=== PATIENT | male | born 1960 | race Caucasian/White ===

== ENCOUNTER 2018-10-27 10:39 | Inpatient (IN) | payer OTHER ==
[2018-10-27 11:40] LABS: Absolute Lymphocytes (CBC) 1.2 K/uL (0.7-4.9); Absolute Monocytes 1.3 K/uL (0.1-1.3); Absolute Neutrophil 5.4 K/uL (1.8-8.0); Basophils % 0.4 % (0-1.3); Eosinophils % 0.3 % (0-4.4); Hematocrit 46.4 % (39.6-49.0); Lymphocytes % 15.4 % (15.3-44.8); MPV 9.3 fL (7.6-11.3); Monocytes % 15.9 % (3.3-12.3); RBC Red Blood Cell Count 5.03 M/uL (4.33-5.43)
[2018-10-27 12:18] LABS: Albumin 4.1 g/dL (3.4-5.0); Bilirubin Direct 0.2 mg/dL (0-0.2); Bilirubin Total 0.8 mg/dL (0.2-1.0); Potassium 3.7 mmol/L (3.5-5.1); Protein, Total 8.1 g/dL (6.4-8.2)
[2018-10-27 12:37] LABS: Blood Morphology Comment NOTED (NOT SEEN); Platelet Estimate ADEQ
[2018-10-27 12:38] LABS: Stomatocytes 1+
[2018-10-27] MEDS ORDERED: ONDANSETRON 4 MG/2 ML VIAL ONE ×2 (12:44→13:22)
--- NOTE | 2018-10-27 12:47 | RAD REPORT ---
EXAM DESCRIPTION: CT - Abdomen Pelvis Wo Contrast - 10/27/2018 12:30 pm CLINICAL HISTORY: Abdominal pain, vomiting COMPARISON: CT March 2016 TECHNIQUE: Axial [address] imaging of the abdomen and pelvis was performed without IV contrast. No IV contrast was given because of allergy, abnormal renal function, patient refusal or physician re quest. No oral contrast administered. All CT scans are performed using dose optimization technique as appropriate and may include automated exposure control or mA/KV adjustment according to patient size. FINDINGS: No suspicious findings in the lung bases. The liver, spleen and pancreas show no suspicious findings on non-contrast imaging. Gallbladder and b iliary tree are also without suspicious finding. Gallstones can be occult on CT imaging. No hydronephrosis or suspicious renal mass. No significant adrenal finding. Isodense renal masses an d pyelonephritis cannot be excluded in the absence of IV contrast. Urinary bladder is contracted. No gross abnormality seen. Stomach is distended with retained fluid and a small amount of food. No gastric wall thickening or ma ss. No gastric outlet obstruction. Duodenum is normal in diameter. It ligament of Treitz there is dil ation of the small bowel but can't see is into the mid ileum level. There is an abrupt transition in the right mid abdomen (image 57/[id number]. There is no mass or wall thickening. Internal hernia or adhesion would be most likely. Beyond the transition point small bowel is decompressed. Colon is decompressed. There is mild left-sided diverticulosis without diverticulitis. No free air, pneumatosis or free fluid. No focal inflammatory stranding. No mass or bulky lymphadeno nicola. Fat filled right inguinal hernia is present. There is postsurgical change in the right mid abd omen abdominal wall. No acute bone finding. Degenerative changes are present. 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 IMPRESSION: Small bowel obstruction pattern with transition point proximal to mid ileum. This is rig ht mid abdomen umbilical level. No mass or focal abnormality at the transition point. This is likely adhesion or possibly internal hernia. No free air or pneumatosis. No surgically emergent finding. Full assessment is limited is the absence of IV contrast.
--- NOTE | 2018-10-27 13:11 | EDPHYS ---
Physician Documentation [facility] Name: Raffi Rodriguez Age: 58 yrs Sex: Male : 1960 Arrival Date: 10/27/2018 Time: 10:40 Bed 8 Private MD: Kj Ortega ED Physician Raffi Julien HPI: 10/27 11:07 This 58 yrs old Male presents to ER via Ambulatory with complaints of jmm Abdominal Pain, Nausea/Vomiting. 11:07 The patient presents with abdominal pain that is diffuse. Onset: The symptoms/episode jmm began/occurred gradually, 6 day(s) ago. The symptoms do not radiate. Associated signs and symptoms: Pertinent positives: vomiting. This is a 58 year old male with a history of sbo that presents to the ED with complaints of generalized abdominal pain beginning this past Tuesday, which has worsened. Patient complaints of multiple episodes of vomiting. Denies recent bowel movement. . Historical: - Allergies: 10:45 Codeine; hj - Home Meds: 10:45 None [Active]; hj - PMHx: 10:45 small bowel obstruction; hj - PSHx: 10:45 left ankle; Appendectomy; hj - Immunization history:: Adult Immunizations up to date. - Social history:: Smoking status: Patient uses tobacco products, Patient uses alcohol, occasionally. - Ebola Screening: : Patient negative for fever greater than or equal to 101.5 degrees Fahrenheit, and additional compatible Ebola Virus Disease symptoms Patient denies exposure to infectious person Patient denies travel to an Ebola-affected area in the 21 days before illness onset. ROS: 11:07 Cardiovascular: Negative for chest pain, palpitations, and edema, Respiratory: Negative jmm for shortness of breath, cough, wheezing, and pleuritic chest pain. 11:07 Constitutional: Positive for body aches, chills. 11:07 Abdomen/GI: Positive for abdominal pain, nausea, vomiting. 11:07 All other systems are negative. Exam: 11:07 Head/Face: atraumatic. Eyes: EOMI, no conjunctival erythema appreciated ENT: Moist jmm Mucus Membranes Neck: Trachea midline, Supple Chest/axilla: Normal chest wall appearance and motion. Cardiovascular: Regular rate and rhythm. No edema appreciated Respiratory: Normal respirations, no respiratory distress appreciated 11:07 Constitutional: The patient appears in no acute distress, alert, awake. 11:07 Abdomen/GI: Inspection: abdomen appears normal, Bowel sounds: normal, Palpation: abdomen is soft and non-tender, in all quadrants. 11:07 Back: ROM is normal. 11:07 Musculoskeletal/extremity: ROM: intact in all extremities. 11:07 Skin: Appearance: Color: normal in color. 11:07 Neuro: Orientation: is normal, Mentation: is normal, Memory: is normal. 11:07 Psych: Behavior/mood is pleasant, cooperative. Vital Signs: 10:46 BP 100 / 69; Pulse 106; Resp 18; Temp 98.4(O); Pulse Ox 96% on R/A; Weight 90.72 kg; hj Height 5 ft. 11 in. (180.34 cm); Pain 7/10; 11:46 BP 127 / 77; Pulse 93; Resp 20; Pulse Ox 94% on R/A; aj1 12:30 BP 128 / 82; Pulse 95; Resp 18; Pulse Ox 94% on 2 lpm NC; aj1 13:30 BP 131 / 74; Pulse 89; Resp 18; Pulse Ox 95% on 2 lpm NC; aj1 14:30 BP 131 / 82; Pulse 87; Resp 18; Pulse Ox 94% on 2 lpm NC; aj1 15:30 BP 145 / 72; Pulse 87; Resp 18; Pulse Ox 94% on 2 lpm NC; aj1 10:46 Body Mass Index 27.89 (90.72 kg, 180.34 cm) MDM: 11:07 Patient medically screened. [facility] 13:08 Data reviewed: vital signs, nurses notes. Counseling: I had a detailed discussion with [facility] the patient and/or guardian regarding: the historical points, exam findings, and any diagnostic results supporting the discharge/admit diagnosis, radiology results. ED course: I discussed the patient with Dr. Mooney whom accepted the patient. I discussed the patient with Dr. Canela whom will consult with the patient. . 10/27 11:08 Order name: Basic Metabolic Panel; Complete Time: 12:39 [facility] 10/27 11:08 Order name: CBC with Diff; Complete Time: 12:39 [facility] 10/27 11:08 Order name: Creatinine for Radiology; Complete Time: 12:17 [facility] 10/27 11:08 Order name: Hepatic Function; Complete Time: 12:39 [facility] 10/27 11:08 Order name: Lipase; Complete Time: 12:39 [facility] 10/27 12:18 Order name: CT Abd/Pelvis - Without Cont; Complete Time: 12:50 [facility] 10/27 12:37 Order name: Manual Differential; Complete Time: 12:39 [facility] 10/27 11:08 Order name: IV Saline Lock; Complete Time: 11:42 [facility] 10/27 11:08 Order name: Labs collected and sent; Complete Time: 11:43 [facility] Administered Medications: 12:50 Drug: Zofran 4 mg Route: IVP; Site: right antecubital; aj1 13:30 Follow up: Response: No adverse reaction aj1 13:23 Drug: NS 0.9% 1000 ml Route: IV; Rate: 1 bolus; Site: right antecubital; aj1 15:49 Follow up: IV Status: Completed infusion; IV Intake: 1000ml aj1 13:23 Drug: morphine 4 mg Route: IVP; Site: right antecubital; aj1 14:30 Follow up: Response: No adverse reaction aj1 15:13 Drug: Mefoxin 1 grams Route: IVPB; Infused Over: 30 mins; Site: right antecubital; aj1 15:50 Follow up: IV Status: Completed infusion; IV Intake: 10ml ; given SIVP per protocol aj1 15:14 Drug: morphine 4 mg Route: IVP; Site: right antecubital; aj1 15:50 Follow up: Response: No adverse reaction aj1 Disposition: 17:04 Co-signature as Attending Physician, Raffi Juilen MD I agree with the assessment and kdr plan of care. Disposition: 10/27/18 13:10 Hospitalization ordered by Abi Mooney for Observation. Preliminary diagnosis is Bowel Obstruction. - Bed requested for Telemetry/MedSurg (Inpatient). - Status is Observation. aj1 - Condition is Stable. - Problem is new. - Symptoms have improved. UTI on Admission? No Signatures: Dispatcher [employer] EDLisa Ruelas RN RN aj1 Raffi Julien MD MD kdr Mickail, Joel, PA PA m Dio Bland RN RN Layla Rojo RN RN df Corrections: (The following items were deleted from the chart) 12:22 11:09 Abdomen Pelvis W Con+CT.RAD.BRZ ordered. [facility] EDMS 12:37 11:49 CBC Smear Scan ordered. [facility] EDMS 14:42 13:10 Hospitalization Ordered by Abi Mooney MD for Observation. Preliminary diagnosis df is Bowel Obstruction. Bed requested for Telemetry/MedSurg (Inpatient). Status is Observation. Condition is Stable. Problem is new. Symptoms have improved. UTI on Admission? No. jmm 15:56 14:42 10/27/2018 13:10 Hospitalization Ordered by Abi Mooney MD for Observation. aj1 Preliminary diagnosis is Bowel Obstruction. Bed requested for Telemetry/MedSurg (Inpatient). Status is Observation. Condition is Stable. Problem is new. Symptoms have improved. UTI on Admission? No. df
--- NOTE | 2018-10-27 13:11 | ER ---
Nurse's Notes [facility] Name: Raffi Rodriguez Age: 58 yrs Sex: Male : 1960 Arrival Date: 10/27/2018 Time: 10:40 Bed 8 Private MD: Kj Ortega Diagnosis: Bowel Obstruction Presentation: 10/27 10:42 Presenting complaint: Patient states: i have been having stomach pain for 3 days now hj and not having a bowel movement for 2 days; reports N/V; denies fever and chills; hx of SBO;. Transition of care: patient was not received from another setting of care. Onset of symptoms was October 27, 2018. Risk Assessment: Do you want to hurt yourself or someone else? Patient reports no desire to harm self or others. Initial Sepsis Screen: Does the patient meet any 2 criteria? No. Patient's initial sepsis screen is negative. Does the patient have a suspected source of infection? No. Patient's initial sepsis screen is negative. Care prior to arrival: None. 10:42 Method Of Arrival: Ambulatory 10:42 Acuity: NICK 3 hj Triage Assessment: 10:45 General: Appears in no apparent distress. uncomfortable, Behavior is calm, cooperative, hj appropriate for age. Pain: Complains of pain in abdomen Pain currently is 7 out of 10 on a pain scale. GI: Reports lower abdominal pain, constipation, nausea, vomiting. Historical: - Allergies: 10:45 Codeine; hj - Home Meds: 10:45 None [Active]; hj - PMHx: 10:45 small bowel obstruction; hj - PSHx: 10:45 left ankle; Appendectomy; hj - Immunization history:: Adult Immunizations up to date. - Social history:: Smoking status: Patient uses tobacco products, Patient uses alcohol, occasionally. - Ebola Screening: : Patient negative for fever greater than or equal to 101.5 degrees Fahrenheit, and additional compatible Ebola Virus Disease symptoms Patient denies exposure to infectious person Patient denies travel to an Ebola-affected area in the 21 days before illness onset. Screenin:45 Abuse screen: Denies threats or abuse. Denies injuries from another. Nutritional hj screening: No deficits noted. Tuberculosis screening: No symptoms or risk factors identified. Fall Risk None identified. Assessment: 10:46 GI: Bowel sounds Abd is soft Reports bloating. hj 11:30 General: Appears in no apparent distress. uncomfortable, Behavior is calm, cooperative, aj1 appropriate for age. Pain: Complains of pain in right lower quadrant Pain does not radiate. Pain currently is 5 out of 10 on a pain scale. at worst was 8 out of 10 on a pain scale. Is intermittent. Neuro: Level of Consciousness is awake, alert, obeys commands, Oriented to person, place, time, situation. Cardiovascular: Patient's skin is warm and dry. Respiratory: Airway is patent Respiratory effort is even, unlabored, Respiratory pattern is regular, symmetrical. GI: Abdomen is round Bowel sounds present X 4 quads. Abd is soft X 4 quads Reports bloating, constipation, nausea, vomiting. : No signs and/or symptoms were reported regarding the genitourinary system. EENT: No signs and/or symptoms were reported regarding the EENT system. Derm: No signs and/or symptoms reported regarding the dermatologic system. Skin is pink, warm \T\ dry. normal. Musculoskeletal: No signs and/or symptoms reported regarding the musculoskeletal system. Circulation, motion, and sensation intact. 12:30 Reassessment: Patient appears in no apparent distress at this time. No changes from aj1 previously documented assessment. Patient and/or family updated on plan of care and expected duration. Pain level reassessed. Patient is alert, oriented x 3, equal unlabored respirations, skin warm/dry/pink. 13:30 Reassessment: Patient appears in no apparent distress at this time. No changes from aj1 previously documented assessment. Patient and/or family updated on plan of care and expected duration. Pain level reassessed. Patient is alert, oriented x 3, equal unlabored respirations, skin warm/dry/pink. 14:30 Reassessment: Patient appears in no apparent distress at this time. No changes from aj1 previously documented assessment. Patient and/or family updated on plan of care and expected duration. Pain level reassessed. Patient is alert, oriented x 3, equal unlabored respirations, skin warm/dry/pink. 15:30 Reassessment: Patient appears in no apparent distress at this time. No changes from aj1 previously documented assessment. Patient and/or family updated on plan of care and expected duration. Pain level reassessed. Patient is alert, oriented x 3, equal unlabored respirations, skin warm/dry/pink. Vital Signs: 10:46 BP 100 / 69; Pulse 106; Resp 18; Temp 98.4(O); Pulse Ox 96% on R/A; Weight 90.72 kg; hj Height 5 ft. 11 in. (180.34 cm); Pain 7/10; 11:46 BP 127 / 77; Pulse 93; Resp 20; Pulse Ox 94% on R/A; aj1 12:30 BP 128 / 82; Pulse 95; Resp 18; Pulse Ox 94% on 2 lpm NC; aj1 13:30 BP 131 / 74; Pulse 89; Resp 18; Pulse Ox 95% on 2 lpm NC; aj1 14:30 BP 131 / 82; Pulse 87; Resp 18; Pulse Ox 94% on 2 lpm NC; aj1 15:30 BP 145 / 72; Pulse 87; Resp 18; Pulse Ox 94% on 2 lpm NC; aj1 10:46 Body Mass Index 27.89 (90.72 kg, 180.34 cm) hj ED Course: 10:40 Patient arrived in ED. ag5 10:41 Kj Ortega MD is Private Physician. ag5 10:44 Triage completed. hj 10:46 Arm band placed on right wrist. hj 10:46 Patient has correct armband on for positive identification. Placed in gown. Bed in low hj position. Call light in reach. Side rails up X 1. 10:50 Roe Elizabeth PA is PHCP. m 10:50 Raffi Julien MD is Attending Physician. jmm 10:55 Lisa England RN is Primary Nurse. aj1 11:30 No provider procedures requiring assistance completed. Initial lab(s) drawn, by ny, aj1 sent to lab. Inserted saline lock: 20 gauge in right antecubital area, using aseptic technique. Blood collected. 12:30 CT Abd/Pelvis - Without Cont In Process Unspecified. EDMS 13:09 Abi Mooney MD is Hospitalizing Provider. m 15:48 Report given to ZAIN Davis on 4th floor. aj1 15:48 Patient admitted, IV remains in place. aj1 Administered Medications: 12:50 Drug: Zofran 4 mg Route: IVP; Site: right antecubital; aj1 13:30 Follow up: Response: No adverse reaction aj1 13:23 Drug: NS 0.9% 1000 ml Route: IV; Rate: 1 bolus; Site: right antecubital; aj1 15:49 Follow up: IV Status: Completed infusion; IV Intake: 1000ml aj1 13:23 Drug: morphine 4 mg Route: IVP; Site: right antecubital; aj1 14:30 Follow up: Response: No adverse reaction aj1 15:13 Drug: Mefoxin 1 grams Route: IVPB; Infused Over: 30 mins; Site: right antecubital; aj1 15:50 Follow up: IV Status: Completed infusion; IV Intake: 10ml ; given SIVP per protocol aj1 15:14 Drug: morphine 4 mg Route: IVP; Site: right antecubital; aj1 15:50 Follow up: Response: No adverse reaction aj Intake: 15:49 IV: 1000ml; Total: 1000ml. aj1 15:50 IV: 10ml; Total: 1010ml. aj1 Outcome: 13:10 Decision to Hospitalize by Provider. [facility] 15:48 Admitted to Tele accompanied by tech, via wheelchair, with oxygen, with chart. aj1 15:48 Condition: stable 15:48 Discharge instructions given to patient, Instructed on the need for admit, Demonstrated understanding of instructions. 15:56 Patient left the ED. aj1 Signatures: Dispatcher [employer] EDLisa Ruelas, RN RN aj1 Roe Elizabeth PA PA jmm Jones, Susan sj Joaquin, Henry, RN RN hj Gaskin, Ajare ag5 Corrections: (The following items were deleted from the chart) 10:48 10:46 Pulse 106bpm; Resp 18bpm; Pulse Ox 96% RA; Temp 98.4F Oral; 90.72 kg; Height 5 hj ft. 11 in.; BMI: 27.8; Pain 7/10; hj 11:25 11:24 CT completed. Patient tolerated procedure well [facility] 11:24 Patient moved back from [facility]. [facility]
[2018-10-27] MEDS ORDERED: MORPHINE 4 MG/ML SYR ONE ×2 (13:21→15:22)
[2018-10-27] MEDS ORDERED: NA CHLORIDE 0.9% 1,000 ML ONE (13:30)
[2018-10-27] MEDS ORDERED: CEFOXITIN/SWI 1gm 1 GM/10 ML SYR ONE (15:16)
[2018-10-27] MEDS ORDERED: ACETAMINOPHEN 650MG/RECT SUPP PR PRN (16:26)
[2018-10-27] MEDS: NA CHLORIDE 0.9% 1,000 ML IV SCH ×2 (17:04→22:47)
[2018-10-27] MEDS: ONDANSETRON 4 MG/2 ML VIAL IV PRN ×2 (17:04→20:58)
[2018-10-27] MEDS: MORPHINE 2 MG/ML SYR IV PRN ×2 (19:16→23:19)
--- NOTE | 2018-10-27 20:36 | CON ---
Date of Consultation: 10/27/2018 Diagnosis: Small bowel obstruction. History Of Present Illness: This is the case of a 58-year-old patient, who comes to the ER complaini ng of abdominal bloating, nausea, and vomiting. He say he has history of bowel obstructions before. He has open appendectomy emergent for ruptured appendix, it has been more than a decade ago. He has not been experiencing some symptoms of bowel obstruction until about 3 days ago, he was just not doi ng well. He just went to the primary doctor, also they gave him some antinausea, some constipation m edication, some laxative, and still not improving, so he just came to the ER. He denies any dysuria, hematuria, hematochezia, or melena. Denies any recent traveling out of the country. Denies any fam calos member sick at home. The patient was advised the importance of colonoscopies. Past Medical History: Includes bowel obstructions. Past Surgical History: Open appendectomy for ruptured appendix in 1990. Allergies: CODEINE. Family History: Noncontributory. Review of Systems: Ten points otherwise unremarkable. Physical Examination: General: The patient is awake and alert. HEENT: Pupils are equal and reactive, anicteric. Neck: Supple. Chest: Clear. Abdomen: Softly distended. Mild tenderness, generalized. No rebound. Rectal: Deferred. Extremities: Good capillary refill. Neuro: Cranial nerves 2 through 12 grossly within normal limits. Laboratory Data: WBC count of 3.8, hemoglobin of 15.8, and platelets of 223. Chloride 97, creatinin e is 2.63, glucose 131. The CAT scan of abdomen and pelvis interpreted Dr. Hernandez as a small bowel obstruction at transition point, probably due to adhesions located right over the previous incision. Assessment: This is a 58-year-old patient with small bowel obstruction. He has been probed more rhonda n 2 days, tried to keep n.p.o., laxative, and he has not improved, so I explained to him that his bow el obstruction shows it is at the transition point and forcefully this time I might have to go and do a laparotomy and relieve that obstruction to diminish chance of compromise the rest of intestines. He is right now coming with renal insufficiency. I am going to let the primary doctor in the next fe w hours to determine if it is for renal or not, if it is then keep him hydrated since he has been hav ing a bowel rest for several days and hydration is being compromised too. From the surgery standpoin t, I explained to him the chance for exploratory laparotomy, possible bowel resection, possible ostom y with benefits, alternatives, and risks including, but not limited to infection, bleeding, damage to adjacent structures as complication, recurrence, AK, and even . He also understands this may n ot relieve his symptoms. He might need more than one surgical intervention. NGUYEN/SARMAD Voice ID: [id number] Report ID: [id number]
[2018-10-27] MEDS ORDERED: MELATONIN 3 MG TABLET PO PRN (22:17)
[2018-10-27] MEDS ORDERED: PANTOPRAZOLE 40 MG INJ IVP ONE (22:17)
[2018-10-27] MEDS ORDERED: SODIUM CHLORIDE 0.9% 10ML INJ IV PRN (22:17)
[2018-10-28] MEDS: ONDANSETRON 4 MG/2 ML VIAL IV PRN ×2 (02:37→06:54)
--- NOTE | 2018-10-28 03:25 | HP ---
Date of Admission: 10/27/2018 Chief Complaint: Abdominal pain. Primary Care Physician: Dr. Ortega. Consultants: Dr. Canela with General Surgery. History Of Present Illness: The patient is a 58-year-old male with no significant past medical histo ry, who was in his usual state of health until 3 days prior to admission when the patient had sudden onset of abdominal pain, nausea, vomiting, unable to tolerate any p.o. intake. The patient has had e pisodes similar to this 2 years ago when the patient had a small-bowel obstruction likely due to adhe sions. The patient has had appendectomy previously. The patient came into the ER. His symptoms wer e constant, moderate, progressively worsening. His vital signs were stable. He was slightly tachyca rdic and hypertensive. His workup revealed elevated creatinine level at 2.63. The patient was sever gisele dehydrated. His CT scan of the abdomen and pelvis showed bowel obstruction pattern with transiti on point proximal to the mid ileum. This is right mid abdomen, umbilical level. No mass. No focal abnormality. No surgically emergent finding. The patient was then referred for admission. When see n in the ER, he was awake, alert, oriented x3, in some mild distress. Past Medical History: None. Surgical History: The patient has had left ankle surgery due to trauma and right hand surgery due to trauma as well, appendectomy. Allergies: TO CODEINE WHICH CAUSES HIVES. Medications: List reviewed. The patient takes [id number] Aleve as needed. Family History: Sister has renal cancer. Brother has heart disease. Social History: The patient smokes a third of a pack per day, has been smoking for very long time, c ounseled for 3 minutes to stop smoking. The patient seems receptive. Alcohol 2 drinks a month. No illicit drug use. Review of Systems: An 11-point system reviewed, negative except as per HPI. Physical Examination: Vital Signs: Temperature 98.4, heart rate 106, blood pressure 100/69, respirations 18, O2 96% on 2 L via nasal cannula. General: Awake, alert, oriented x3, ill-appearing male. HEENT: Normocephalic, atraumatic. PERRLA. EOMI. Dry mucous membranes. Oropharynx is clear. Conj unctivae are anicteric. Neck: Supple. No JVD. Trachea midline. CV: S1, S2. Regular rate and rhythm. Peripheral pulses present. Respiratory: Moving air well bilaterally. No wheezing or stridor. No use of accessory muscles. Gastrointestinal: Abdomen is distended. Tenderness to palpation. Bowel sounds hypoactive. No guar ding or rigidity. Extremities: No clubbing, cyanosis, or edema. No calf tenderness. Neuro: Cranial nerves 2-12 intact grossly. No focal neurological deficit. Speech is normal. Stren gth is symmetric in bilateral upper and lower extremities. Sensation intact to light touch. Skin: No rashes. Normal skin turgor. Psych: Mood is okay. Affect is full. Insight and judgment are good. Laboratory Data: Sodium 138, potassium 3.7, chloride 97, CO2 29, BUN 59, creatinine 2.63, glucose 13 1, calcium 8.8. Lipase 81. WBC 8, H and H 15.8 and 46.4, platelets 223, neutrophils 68. CT scan sh ows a small-bowel obstruction pattern with transition point proximal to mid ileum. This is right mid abdomen, umbilical level. No mass or focal abnormality seen at the transition point, likely adhesio n or possible internal hernia. No free air or pneumatosis. No surgically emergent finding. Assessment And Plan: A 58-year-old male with: 1.Small-bowel obstruction secondary to adhesions most likely. The patient is scheduled for surgery by Dr. Canela in the a.m. We will keep n.p.o. NG tube if the patient has further nausea and vomit ing. Pain medications and IV fluids. 2.Acute kidney injury. Creatinine is elevated, likely prerenal secondary to prerenal azotemia. We will continue with IV fluid hydration and monitor creatinine. Avoid NSAIDs. 3.Hyperglycemia, likely reactive. No history of diabetes. 4.GI and DVT prophylaxis, PPI and SCDs. No chemical anticoagulation due to impending surgery. We will continue with IV fluid hydration, pain medications, and antiemetics. We will place NG tube i f condition worsens. Anticipate surgery in the a.m. Admit the patient to Med-Surg, place as observa tion. /MODHerbert Voice ID: [id number]
[2018-10-28] MEDS: MORPHINE 2 MG/ML SYR IV PRN ×4 (03:26→17:04)
[2018-10-28 04:40] LABS: Absolute Lymphocytes (CBC) 1.1 K/uL (0.7-4.9); Absolute Neutrophil 2.4 K/uL (1.8-8.0); Basophils % 0.6 % (0-1.3); Eosinophils % 0.8 % (0-4.4); Hematocrit 38.4 % (39.6-49.0); Lymphocytes % 23.4 % (15.3-44.8); MPV 9.4 fL (7.6-11.3); RBC Red Blood Cell Count 4.13 M/uL (4.33-5.43)
[2018-10-28 04:52] LABS: Monocytes % 21.9 % (3.3-12.3)
[2018-10-28 05:07] LABS: Albumin 3.2 g/dL (3.4-5.0); Bilirubin Total 0.8 mg/dL (0.2-1.0); Magnesium 2.5 mg/dL (1.8-2.4); Potassium 4.2 mmol/L (3.5-5.1); Protein, Total 6.3 g/dL (6.4-8.2)
[2018-10-28] MEDS: NA CHLORIDE 0.9% 1,000 ML IV SCH ×3 (08:26→23:29)
[2018-10-28] MEDS ORDERED: Ringers Lactate 1,000 ML IV ONE ×3 (09:34→11:36)
[2018-10-28] MEDS ORDERED: CEFOXITIN/SWI 1gm 1 GM/10 ML SYR ONE (10:09)
[2018-10-28] MEDS ORDERED: SUCCINYLCHOLINE 20 MG/ML (10 ML) IV ONE ×2 (10:12)
[2018-10-28] MEDS ORDERED: FENTANYL CITR 250 MCG/5 ML ONE (10:15)
[2018-10-28] MEDS ORDERED: PROPOFOL 200 MG/20 ML VIAL IV ONE (10:15)
[2018-10-28] MEDS ORDERED: MIDAZOLAM HCL 2 MG/2 ML INJ ONE (10:15)
[2018-10-28] MEDS ORDERED: ROCURONIUM 50 MG/5 ML VIAL IV ONE ×2 (10:15→11:17)
[2018-10-28] MEDS ORDERED: DEXAMETHASONE 10 MG/ML VIAL ONE (11:00)
[2018-10-28] MEDS ORDERED: Phenylephrine HCl 10 MG/ML 1 ML VIAL ONE (11:03)
[2018-10-28] MEDS ORDERED: GLYCOPYRROLATE 0.2 MG/ML SYR ONE (12:49)
[2018-10-28] MEDS ORDERED: NEOSTIGMINE 1 MG/ML -10 ML VIAL ONE (12:49)
[2018-10-28] MEDS: FENTANYL CITR 100 MCG/2 ML ONE ×3 (13:20→13:40)
[2018-10-28] MEDS ORDERED: KETOROLAC 30 MG/ML INJ ONE (13:25)
--- NOTE | 2018-10-28 13:42 | P.BOP ---
Preoperative diagnosis: SBO Postoperative diagnosis: same Primary procedure: Exploratory laparotomy, small bowel resection Secondary procedure: EXTENSIVE intrabdominal lysis of adhesions. [place] Guide: Lucinda Chavis (Patricio) Estimated blood loss: <100cc Specimen: SB, intraintestinal content. Anesthesia: General Complications: None Transferred to: Recovery Room Condition: Good
[2018-10-28] MEDS ORDERED: MEPERIDINE HCL 50 MG/ML AMP ONE (14:00)
[2018-10-28] MEDS ORDERED: ONDANSETRON 4 MG/2 ML VIAL ONE (14:00)
[2018-10-28] MEDS: METRONIDAZOLE 500mg IVPB 500 MG/100 ML BAG IV SCH ×2 (17:04→23:29)
--- NOTE | 2018-10-28 17:38 | PN ---
Date of Progress Note: 10/28/2018 History: The patient is seen and examined. Chart reviewed and case discussed with RN and Dr. Jarett hendrix. The patient went for surgery today by Dr. Canela. He tolerated the procedure well. Did have some hypoxia. Postoperatively is on face mask. Medications: List reviewed. Physical Examination: Vital Signs: Temperature 99.2, heart rate 102, blood pressure 154/87, respirations 24, O2 95% on a V enturi mask, 24% FiO2. General: Awake, alert, oriented x3. Some mild distress, is having some pain around the incision sit e. CV: S1, S2. No murmurs. Sinus tachycardia. Respiratory: Diminished breath sounds. No wheezing or stridor. Gastrointestinal: Abdomen is mildly distended. Tenderness to palpation around the incision site. I ncision site is bandaged, clean, dry, and intact. Bowel sounds absent. Extremities: No clubbing, cyanosis, edema. Neurologic: Nonfocal. Laboratory Data: Sodium 143, potassium 4.2, chloride 108, CO2 30, BUN 48, creatinine 1.28, glucose 1 05, calcium 7.9, phosphorus 3, magnesium 2.5. WBC 4.6, H and H of 13 and 38.4, platelets 179, neutro phils 53%. Assessment And Plan: A 58-year-old male with: 1.Small bowel obstruction secondary to extensive adhesions, status post exploratory laparotomy with lysis of adhesions. We will continue with bowel rest. NG tube in place. Appreciate Dr. Canela's input. 2.Acute kidney injury. Creatinine has normalized. We will continue with IV fluids and monitor crea tinine. 3.Hyperglycemia, resolved, likely acute. No history of diabetes. No risk factors. 4.Gastrointestinal, deep vein thrombosis prophylaxis. PPI and SCDs. Resume anticoagulation 24 hour s post surgery. 5.Hypoxia. Acute respiratory failure with hypoxia, currently on Venturi mask, likely secondary to r esidual anesthesia. We will wean off as tolerated. Plan: Continue monitoring in the ICU setting. SA/MODL Voice ID: [id number] Report ID: [id number]
[2018-10-28] MEDS: MORPHINE 4 MG/ML SYR IV PRN ×3 (19:07→23:15)
[2018-10-28] MEDS: CIPROFLOXACIN 400mg IV 400 MG/200 ML BAG IV SCH (20:34)
[2018-10-28] MEDS: ACETAMINOPHEN 650MG/RECT SUPP PR PRN (21:04)
--- NOTE | 2018-10-28 22:33 | OP ---
Date of Procedure: 10/28/2018 Surgeon: Dio Canela MD Vice President: TITO Ocasio. Preoperative Diagnosis: Small bowel obstruction. Postoperative Diagnoses: Small bowel obstruction plus extensive intraabdominal adhesions and devital ized small bowel and stricture. Procedures: Emergent exploratory laparotomy with small bowel resection, anastomosis, and extensive i ntraabdominal lysis of adhesions. Estimated Blood Loss: Less than 100 cc. Specimen: Small bowel intra-intestinal content causing obstruction. Anesthesia: General. Indications: This is the case of a male, who comes to us with small bowel obstruction, not improving . Benefits, alternatives, and risks of laparotomy, possible bowel resection, possible colostomy were fully explained to the patient, which include but are not limited to infection, bleeding, damage to adjacent structures, anesthesia complication, anastomosis leak, abscess, KS, and even . He also understands this may not relieve his symptoms. He might need more than one surgical intervention. He understood, signed a consent. Description Of Procedure: The patient was brought to the operating room, placed in supine position. Anesthesia was achieved without complication. A time-out was called. A midline incision was made. Incision was gone through fascia and immediately we noticed the patient to have dense adhesions. La parotomy was done, which took significant amount of time. We spent at least more than an hour were j ust to do lysis of adhesions to be able to get access to the area. The patient has previous abdomina l surgery for ruptured appendix. We were able to release area of small bowel. We noticed the patien t had a stricture in the small bowel, that bowel does not look viable, so we proceeded to do the prox imal and distal control, transect the CHAGO 55, proximal and distal. We opened the proximal part and l arge amount of vegetable material was removed. Please see pictures. Some of them more than 50 cm lo ng and about 1 cm thick. They looked like entire asparagus. We had to remove that, since even to th e anastomosis we believe this may cause obstruction. Once we did that and then basically we once aga in controlled of the area, since we already ran the bowel and released that from all the adhesions an d found the area of narrowing, we proceeded then to make 2 enterotomies, proximal and distal, and con nected anastomosis using a CHAGO 55 and then closed the enterotomies with TA 55, checking anastomosis t o be patent and also viable. The mesenteric that previously was ligated with LigaSure was then appro ximated to diminish the chance of internal hernias. The bowel has good color with no cyanosis. Afte r that, we put the bowel in and made sure was not kinked, then we proceeded to do a profuse irrigatio n of the abdomen. The area of the lysis of adhesions also inspected to make sure there was no bleedi ng. NG tube looks in place. The liver with no masses palpated, and the rest of the large bowel look s viable with no extraluminal masses seen. At that moment, we once again inspected bowel, it was rosalino e and clean, we put it without a kink in the abdomen and then closed the fascia with #2 nylon in runn ing fashion, subcutaneous tissue closed with 3-0 chromic, and the skin with fara. Sponge count an d instrument counts were correct. The patient tolerated the procedure well. The patient was sent to Recovery in stable condition. NGUYEN/SARMAD Voice ID: [id number] Report ID: [id number]
[2018-10-29] MEDS: MORPHINE 4 MG/ML SYR IV PRN ×4 (01:35→22:12)
[2018-10-29] MEDS: METRONIDAZOLE 500mg IVPB 500 MG/100 ML BAG IV SCH ×3 (05:32→17:23)
[2018-10-29 05:37] LABS: Absolute Lymphocytes (CBC) 1.2 K/uL (0.7-4.9); Absolute Monocytes 1.2 K/uL (0.1-1.3); Absolute Neutrophil 4.3 K/uL (1.8-8.0); Basophils % 0.2 % (0-1.3); Eosinophils % 0.1 % (0-4.4); Hematocrit 38.3 % (39.6-49.0); MPV 9.1 fL (7.6-11.3); Monocytes % 17.4 % (3.3-12.3); RBC Red Blood Cell Count 4.03 M/uL (4.33-5.43)
[2018-10-29 05:51] VITALS: BMI 28.3
[2018-10-29 05:55] LABS: Albumin 3.1 g/dL (3.4-5.0); Bilirubin Total 0.7 mg/dL (0.2-1.0); Potassium 4.4 mmol/L (3.5-5.1); Protein, Total 6.8 g/dL (6.4-8.2)
[2018-10-29] MEDS: MORPHINE 2 MG/ML SYR IV PRN ×3 (08:17→16:02)
[2018-10-29] MEDS: CIPROFLOXACIN 400mg IV 400 MG/200 ML BAG IV SCH ×2 (08:18→20:09)
[2018-10-29] MEDS: NA CHLORIDE 0.9% 1,000 ML IV SCH ×3 (08:26→20:31)
[2018-10-29] MEDS: ONDANSETRON 4 MG/2 ML VIAL IV PRN (10:00)
[2018-10-29 10:35] LABS: BUN Blood Urea Nitrogen 21 mg/dL (7-18); Bicarbonate 29 mmol/L (21-32); Glucose Level 127 mg/dL (74-106); Potassium 4.4 mmol/L (3.5-5.1); Sodium Level 143 mmol/L (136-145)
--- NOTE | 2018-10-29 14:35 | PN ---
Date of Progress Note: 10/29/2018 Subjective: Patient was seen and examined, chart reviewed and case discussed with RN. The patient i s doing well overall. 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 Medications List: Reviewed. Physical Examination: Vital Signs: T-max was 101.3 last night around 8 p.m. Current temperature is 99.7. CV: S1, S2. Regular rate and rhythm. Peripheral pulses present. Respiratory: Diminished breath sounds at the bases. No wheezing. Gastrointestinal: Abdomen is mildly distended. Mild tenderness to palpation around the incision sit e. Bowel sounds absent. Incision site clean, dry, intact. Extremities: No clubbing, cyanosis, or edema. Neurologic: Nonfocal. Laboratory Data: Sodium 144, potassium 4.4, chloride 109, CO2 30, BUN 24, creatinine 0.97, glucose 1 22, calcium 8.1, albumin 3.1. WBC 6.7, H and H 12.7 and 38.3, platelets 168, neutrophils 64%. Assessment And Plan: 1.A 58-year-old male with small bowel obstruction secondary to extensive adhesions, status post expl oratory laparotomy with lysis of adhesions. The patient is ambulating well, still has NG tube in ernesto ce, had 150 mL out since yesterday. We will continue with bowel rest until the patient is passing fl atus. Encourage ambulation. 2.Fever, likely due to atelectasis. We will check chest x-ray. Continue incentive spirometer. The patient has not been very enthusiastic with using the incentive spirometer. Encourage ambulation. 3.Acute kidney injury. Creatinine improved and normalized. We will continue with IV fluids and mon itor creatinine level. We will avoid NSAIDs. Hypoxia, resolved. 4.Normocytic normochromic anemia. H and H are stable. No postoperative bleeding. Plan: We will check chest x-ray for pneumonia. The patient is currently on Cipro and Flagyl. May n eed to adjust antibiotics depending on results step down from ICU if okay with Dr. Canela. /SARMAD Voice ID: [id number] Report ID: [id number]
--- NOTE | 2018-10-29 15:31 | RAD REPORT ---
EXAM DESCRIPTION: RAD - Chest Single View - 10/29/2018 2:16 pm CLINICAL HISTORY: cough, fever Chest pain. COMPARISON: No comparisons FINDINGS: Portable technique limits examination quality. The lungs are grossly clear. The heart is normal in size. No displaced fractures.Enteric tube tip blake ears to be entering the stomach. IMPRESSION: No acute intrathoracic process suspected.
[2018-10-29] MEDS ORDERED: SODIUM CHLORIDE 0.9% 10ML INJ IV PRN (17:14)
[2018-10-29] MEDS: PANTOPRAZOLE 40 MG INJ IVP SCH (17:23)
[2018-10-29 19:23] LABS: Urine Appearance CLEAR; Urine Bilirubin NEGATIVE (NEG); Urine Blood TRACE (NEG); Urine Color YELLOW; Urine Glucose TRACE (NEG); Urine Protein NEGATIVE (NEG); Urine Specific Gravity 1.015 (1.005-1.030); Urine Urobilinogen 0.2 mg/dL (0.2-1.0); Urine pH 7.5 (5.0-7.0)
[2018-10-29 19:41] LABS: Urine Bacteria <20 /HPF (NONE SEEN)
[2018-10-29 19:42] LABS: Urine Culture Reflex Order NOT NEEDED
[2018-10-29] MEDS: ACETAMINOPHEN 650MG/RECT SUPP PR PRN (20:31)
--- NOTE | 2018-10-29 20:35 | PN ---
Status post laparotomy, extensive intraabdominal adhesions, small bowel resection and anastomosis. The patient is doing better. No shortness of breath. No chest pain. Ambulating. NG tube in place. Objective: General: The patient is awake and alert. HEENT: Pupils are equal and reactive, anicteric. Neck: Supple. Chest: Clear. Abdomen: Softly distended. Bowel sounds negative. Intact surgical site. Extremities: Good capillary refill. No calf tenderness. Laboratory Data: Blood work shows WBC count of 6.7 with hemoglobin of 12.7. Chloride is 110, creati nine is 0.8, BUN is 21. Plan: Continue NG tube. Out of bed. Incentive spirometry. Continue on IV antibiotics. Bowel rest . The patient may be transferred to the floor. Incentive spirometry. NGUYEN/SARMAD Voice ID: [id number] Report ID: [id number]
[2018-10-29 22:27] LABS: Absolute Lymphocytes (CBC) 1.2 K/uL (0.7-4.9); Absolute Neutrophil 5.5 K/uL (1.8-8.0); Basophils % 0.4 % (0-1.3); Eosinophils % 0.6 % (0-4.4); Hematocrit 36.9 % (39.6-49.0); Lymphocytes % 15.5 % (15.3-44.8); MPV 9.2 fL (7.6-11.3); Monocytes % 13.2 % (3.3-12.3); RBC Red Blood Cell Count 3.98 M/uL (4.33-5.43)
[2018-10-29 22:37] LABS: ALT/SGPT 24 U/L (12-78); AST/SGOT 26 U/L (15-37); Albumin 3.1 g/dL (3.4-5.0); Alkaline Phosphatase 60 U/L (45-117); BUN Blood Urea Nitrogen 16 mg/dL (7-18); Bicarbonate 28 mmol/L (21-32); Bilirubin Total 0.8 mg/dL (0.2-1.0); Glucose Level 127 mg/dL (74-106); Potassium 3.7 mmol/L (3.5-5.1); Protein, Total 6.7 g/dL (6.4-8.2); Sodium Level 139 mmol/L (136-145)
[2018-10-30] MEDS: NA CHLORIDE 0.9% 1,000 ML IV SCH ×2 (00:26→08:26)
[2018-10-30] MEDS: METRONIDAZOLE 500mg IVPB 500 MG/100 ML BAG IV SCH ×5 (00:49→23:45)
[2018-10-30 04:19] LABS: Absolute Lymphocytes (CBC) 1.5 K/uL (0.7-4.9); Absolute Monocytes 1.3 K/uL (0.1-1.3); Absolute Neutrophil 6.5 K/uL (1.8-8.0); Basophils % 0.3 % (0-1.3); Eosinophils % 1.2 % (0-4.4); Hematocrit 36.4 % (39.6-49.0); Lymphocytes % 15.7 % (15.3-44.8); Monocytes % 13.9 % (3.3-12.3); RBC Red Blood Cell Count 3.93 M/uL (4.33-5.43)
[2018-10-30] MEDS: PANTOPRAZOLE 40 MG INJ IVP SCH (08:18)
[2018-10-30] MEDS: CIPROFLOXACIN 400mg IV 400 MG/200 ML BAG IV SCH ×2 (08:18→21:10)
[2018-10-30] MEDS: D5.45NS W/KCL 20MEQ 20 MEQ/1,000 ML BAG IV SCH ×2 (12:49→23:44)
[2018-10-30] MEDS: IPRATROPIUM BROM 0.5MG/2.5ML NEB SCH ×2 (14:41→20:00)
[2018-10-30] MEDS: ALBUTEROL 2.5 MG/3 ML NEB SOL NEB SCH ×2 (14:41→20:00)
[2018-10-30] MEDS: ACETAMINOPHEN 500 MG TAB PO PRN (15:43)
--- NOTE | 2018-10-30 16:33 | PN ---
Date of Progress Note: 10/30/2018 Subjective: Patient was seen and examined. Chart reviewed and case discussed with RN and Dr. Canela. The patient said he had a rough night. He self weaned off morphine. The patient is ambulating. No acute distress. Still has not passed any flatus. Medications: List reviewed. Physical Examination: Vital Signs: Temperature 98.3, heart rate 94, blood pressure 158/75, respirations 18, O2 93% on 2 L via nasal cannula. General: Awake, alert, and oriented x3, not in any acute distress. CV: S1 and S2. Regular rate and rhythm. Peripheral pulses present. Respiratory: Moving air well bilaterally. No wheezing or stridor. Gastrointestinal: Abdomen is soft. Mild tenderness to palpation of the incision site. Incision site is clean, dry, and intact. Bowel sounds hyperactive. Extremities: No clubbing, cyanosis, or edema. Neurologic: Nonfocal. Laboratory Data: Sodium 139, potassium 3.7, chloride 105, CO2 28, BUN 16, creatinine 0.81, glucose 127, lactate 1.1, calcium 8.2. WBC 9.3, H and H 12.5 and 36.4, platelets 170, neutrophils 69%. Cultures pending. Pathology specimen is also pending. Chest x-ray from 10/29/2018, personally reviewed, shows no acute intrathoracic process suspected. Assessment And Plan: A 58-year-old male with; 1. Small bowel obstruction secondary to extensive adhesions, status post exploratory laparotomy and lysis of adhesions postoperative day #2. The patient still has not passed any flatus, has been ambulating. No longer on any IV narcotics. We will continue to monitor until bowel function returns and Dr. Canela is on board. 2. Acute kidney injury. Creatinine normalized. We will continue to monitor creatinine level. Likely prerenal azotemia, secondary to dehydration. 3. Fever. Chest x-ray was clear. UA was negative likely secondary to atelectasis postoperatively. The patient is doing well with incentive spirometry. No further fevers. We will continue to monitor. 4. Hypoxia. The patient currently on 2 L via nasal cannula. We will try to wean off as tolerated. The patient does smoke, likely has some underlying COPD. We will start on breathing treatments. SA/MODL Voice ID: [id number] Report ID: [id number] MTDD
--- NOTE | 2018-10-30 17:48 | PN ---
Date of Progress Note: 10/30/2018 Diagnosis: Small bowel obstruction, status post laparotomy and bowel resection. Subjective: The patient is doing well, ambulating. He believes he passed some flatus, not sure. Objective: General: Afebrile. Chest: Clear. Abdomen: Soft, softly distended. Bowel sounds diminished. Intact surgical site. Extremities: Good capillary refill. Laboratory Data: Blood work shows WBC count of 9.3, hemoglobin of 12.5, glucose 127. Assessment: A 58-year-old patient, status post bowel obstruction, status post bowel surgery, improvi ng doing better. We are going to remove the NG tube today. Sip of water. Ambulation incentive spir ometry. We might probably start feeding him tomorrow. NGUYEN/SARMAD Voice ID: [id number] Report ID: [id number]
[2018-10-30] MEDS: ZOLPIDEM TARTRATE 5 MG TABLET PO PRN (21:10)
[2018-10-30] MEDS: TRAMADOL HCL 50 MG TAB PO PRN (21:11)
[2018-10-31] MEDS: ALBUTEROL 2.5 MG/3 ML NEB SOL NEB SCH ×4 (01:02→20:00)
[2018-10-31] MEDS: IPRATROPIUM BROM 0.5MG/2.5ML NEB SCH ×4 (01:02→20:00)
[2018-10-31 04:35] LABS: Absolute Lymphocytes (CBC) 1.6 K/uL (0.7-4.9); Absolute Monocytes 1.2 K/uL (0.1-1.3); Absolute Neutrophil 7.2 K/uL (1.8-8.0); Basophils % 0.6 % (0-1.3); Eosinophils % 2.2 % (0-4.4); Hematocrit 39.4 % (39.6-49.0); Lymphocytes % 15.7 % (15.3-44.8); MPV 8.9 fL (7.6-11.3); Monocytes % 11.7 % (3.3-12.3); RBC Red Blood Cell Count 4.29 M/uL (4.33-5.43)
[2018-10-31 04:47] LABS: BUN Blood Urea Nitrogen 12 mg/dL (7-18); Bicarbonate 28 mmol/L (21-32); Glucose Level 117 mg/dL (74-106); Potassium 3.7 mmol/L (3.5-5.1); Sodium Level 141 mmol/L (136-145)
[2018-10-31] MEDS: METRONIDAZOLE 500mg IVPB 500 MG/100 ML BAG IV SCH ×4 (06:28→23:42)
[2018-10-31] MEDS: ACETAMINOPHEN 500 MG TAB PO PRN ×2 (06:31→16:05)
[2018-10-31] MEDS: D5.45NS W/KCL 20MEQ 20 MEQ/1,000 ML BAG IV SCH ×3 (08:00→18:00)
[2018-10-31] MEDS: PANTOPRAZOLE 40 MG INJ IVP SCH (08:03)
[2018-10-31] MEDS: CIPROFLOXACIN 400mg IV 400 MG/200 ML BAG IV SCH ×2 (08:04→21:00)
--- NOTE | 2018-10-31 11:26 | EKG ---
Test Date: 2018-10-27 Test Time: 17:41:22 Recreational Director: ANGELES MEASUREMENT RESULTS: Intervals: Rate: 84 [place]: 150 QRSD: 86 QT: 382 QTc: 451 [place]: P: 74 [place]: 150 QRS: 57 T: 67 INTERPRETIVE STATEMENTS: Sinus rhythm with occasional premature ventricular complexes Nonspecific T wave abnormality Abnormal ECG Compared to ECG 01/15/2016 10:23:37 Ventricular premature complex(es) now present T-wave abnormality now present Electronically Signed On 10-27-18 18:20:34 CDT by Gonzalo Tao
--- NOTE | 2018-10-31 18:01 | PN ---
Date of Progress Note: 10/31/2018 Diagnoses: Small bowel obstruction, status post laparotomy, extensive lysis of adhesions, bowel rese ction, anastomosis. Subjective: The patient is doing well. Ambulating, now tolerating diet, passing gas today and some bowel movement. No fever. Objective: Chest: Clear. Abdomen: Soft and depressible. Intact surgical site. Intact midline. Extremities: No calf tenderness. Plan: We are going to advance to clear liquid diet now. We are going to have some protection of the staple line, since the gauze are off. Ambulation, incentive spirometry. We are going to advance di et until tomorrow morning. If he tolerates diet by tomorrow morning, then we might send him home. NGUYEN/SARMAD Voice ID: [id number] Report ID: [id number]
--- NOTE | 2018-10-31 18:28 | P.PN ---
Subjective Date of Service: 10/31/18 Subjective: No C/O voiced, Improving Patient seen and examined at bedside. No family at bedside. Chart reviewed and case discussed with nursing staff and Dr. Canela. Patient admitted for SBO, no complaints, doing well. No acute events noted overnight. Review of Systems 10-point ROS is otherwise unremarkable Physical Examination - Vital Signs Temperature: 100.0 F Blood Pressure: 157/70 Pulse: 101 Respirations: 16 Pulse Ox (%): 94 - Physical Exam General: Alert, In no apparent distress HEENT: Atraumatic, PERRLA, EOMI Neck: Supple, JVD not distended Respiratory: Clear to auscultation bilaterally, Normal air movement Cardiovascular: Regular rate/rhythm, Normal S1 S2 Gastrointestinal: Normal bowel sounds, No tenderness Musculoskeletal: No tenderness Integumentary: No rashes Neurological: Normal speech, Normal tone, Normal affect Lymphatics: No axilla or inguinal lymphadenopathy Assessment And Plan - Current Problems (Diagnosis) (1) Bowel obstruction Onset Date: 04/06/16 Current Visit: Yes Status: Acute Qualifiers: Intestinal obstruction type: unspecified Intestinal obstruction extent: unspecified extent Qualified Code(s): K56.609 - Unspecified intestinal obstruction, unspecified as to partial versus complete obstruction (2) ARF (acute renal failure) Onset Date: 04/06/16 Current Visit: No Status: Resolved Qualifiers: Acute renal failure type: unspecified Qualified Code(s): N17.9 - Acute kidney failure, unspecified (3) Nausea & vomiting Onset Date: 04/06/16 Current Visit: No Status: Acute (4) Fever Current Visit: Yes Status: Acute (5) Hypoxia Current Visit: Yes Status: Acute - Plan A 58-year-old male with; Small bowel obstruction secondary to extensive adhesions, status post exploratory laparotomy and lysis of adhesions postoperative day #3. The patient finally passed flatus, has been ambulating. Continues to be off any IV narcotics. Dr. Canela is on board. Recommendations appreciated. Start CLD, we will advance as tolerated. Acute kidney injury. Creatinine normalized. We will continue to monitor creatinine level. Likely prerenal azotemia, secondary to dehydration. Fever. Resolved. Chest x-ray was clear. UA was negative likely secondary to atelectasis postoperatively. The patient is doing well with incentive spirometry. No further fevers. We will continue to monitor. Hypoxia. The patient currently on 2 L via nasal cannula. We will try to wean off as tolerated. The patient does smoke, likely has some underlying COPD. We will start on breathing treatments. DVT prophylaxis: Hold GI prophylaxis: None Diet: CLD, advance as tolerated Disposition: Advance diet as tolerated. Likely discharge home once tolerating GI soft diet. Discharge Plan: Home Plan to discharge in: 48 Hours
[2018-10-31] MEDS: ZOLPIDEM TARTRATE 5 MG TABLET PO PRN (21:28)
[2018-10-31] MEDS: TRAMADOL HCL 50 MG TAB PO PRN (21:28)
[2018-11-01] MEDS: ALBUTEROL 2.5 MG/3 ML NEB SOL NEB SCH ×3 (02:00→13:40)
[2018-11-01] MEDS: IPRATROPIUM BROM 0.5MG/2.5ML NEB SCH ×3 (02:00→13:40)
[2018-11-01] MEDS: D5.45NS W/KCL 20MEQ 20 MEQ/1,000 ML BAG IV SCH (03:54)
[2018-11-01] MEDS: TRAMADOL HCL 50 MG TAB PO PRN (05:09)
[2018-11-01] MEDS: METRONIDAZOLE 500mg IVPB 500 MG/100 ML BAG IV SCH ×2 (05:12→11:12)
[2018-11-01] MEDS: CIPROFLOXACIN 400mg IV 400 MG/200 ML BAG IV SCH (08:15)
[2018-11-01] MEDS: PANTOPRAZOLE 40 MG INJ IVP SCH (08:15)
[2018-11-01 09:54] VITALS: O2SAT 96
[2018-11-01 12:54] VITALS: BP 167/87; TEMP 97.9
--- NOTE | 2018-11-02 04:41 | PN ---
Date of Progress Note: 11/01/2018 Diagnosis: Small bowel obstruction status post laparotomy, resection and anastomosis. Subjective: General: The patient doing well. Tolerating diet. Passing flatus. Having good bowel movement. No shortness of breath, no chest pain. Chest: Clear. Abdomen: Soft and depressible. Bowel sounds positive. Intact mobilization. Extremities: Good capillary refill. No calf tenderness. Plan: He has taken liquid diet this morning. He is going to advance during the daytime. If he is a ble to tolerate volumes better, then from a sacral standpoint, he is cleared to go home with a condit ion of having a soft diet. Follow with my office in 1 week. If he is still getting nauseous today, liz figueroa encouraged him to slow down out of bed and then was try tomorrow if he can sleep well. NGUYEN/SARMAD Voice ID: [id number] Report ID: [id number]
== END 2018-11-01 14:20 | disposition home or self-care (01) | DRG 335 ==
LOC: ER 10:39 → ERHOLD 13:11 → 4TH 15:08 → OBSVTOIN 19:54 → INTOOBSV 19:54 → 3RD-ICU 10-28 13:56 → 4TH 10-29 15:40
PROVIDERS: ADMIT Family Medicine; ATTEND Family Medicine
PROC: 0DB80ZX Excision of Small Intestine, Open Approach, Diagnostic (ICD-10-PCS; 2018-10-28)
PROC: 0D9670Z Drainage of Stomach with Drainage Device, Via Natural or Artificial Opening (ICD-10-PCS; 2018-10-28)
PROC: 0DN80ZZ Release Small Intestine, Open Approach (ICD-10-PCS; principal; 2018-10-28 10:00)
DX: K56.609 Unspecified intestinal obstruction, unspecified as to partial versus complete obstruction (principal); J96.01 Acute respiratory failure with hypoxia; N17.9 Acute kidney failure, unspecified; J95.89 Other postprocedural complications and disorders of respiratory system, not elsewhere classified; J98.11 Atelectasis; K56.50 Intestinal adhesions [bands], unspecified as to partial versus complete obstruction; E86.0 Dehydration; Z88.5 Allergy status to narcotic agent; F17.210 Nicotine dependence, cigarettes, uncomplicated; R73.9 Hyperglycemia, unspecified; T88.59XA Other complications of anesthesia, initial encounter; Y83.6 Removal of other organ (partial) (total) as the cause of abnormal reaction of the patient, or of later complication, without mention of misadventure at the time of the procedure; Y92.234 Operating room of hospital as the place of occurrence of the external cause; R50.9 Fever, unspecified
CPT/HCPCS: 36415; 71045; 74176; 80048; 80053; 80076; 81001; 83605; 83690; 83735; 84100; 85025; 87040; 88307; 93005; 94760; 94762; 96361; 96365; 96375; 99285; C9113; G0378; J0330; J0744; J1100; J2175; J2250; J2270; J2370; J2405; J2704; J2710; J3010; J7030

== ENCOUNTER 2023-12-28 06:30 | Day surgery (SDC) | payer OTHER ==
[2023-12-27 13:02] LABS: Absolute Basophils 0.1 K/uL (0-0.5); Absolute Eosinophils 0.2 K/uL (0-0.5); Absolute Monocytes 0.6 K/uL (0.1-1.3); Absolute Neutrophil 4.3 K/uL (1.8-8.0); Basophils % 0.7 % (0-1.3); Eosinophils % 2.6 % (0-4.4); Hematocrit 45.6 % (39.6-49.0); Hemoglobin 14.8 g/dL (13.6-17.9); Lymphocytes % 27.9 % (15.3-44.8); MCH 29.5 pg (27.0-35.0); MCHC 32.5 g/dL (32.0-36.0); MCV 90.8 fL (80-100); Monocytes % 8.3 % (3.3-12.3); Neutrophils % 60.5 % (41.7-73.7); Platelets 190 thou/uL (152-406); RBC Red Blood Cell Count 5.02 M/uL (4.33-5.43); Red Cell Distribution Width 14.5 % (12.1-15.2)
[2023-12-27 13:10] LABS: PT Prothrombin Time 13.1 SECONDS (9.5-12.5); Protime INR 1.2
[2023-12-27 13:14] LABS: Anion Gap 6.4 mEq/L (5.0-15.0); Potassium 3.4 mEq/L (3.5-5.1)
--- NOTE | 2023-12-27 13:32 | RAD REPORT ---
EXAM DESCRIPTION: Sri Alcantara And Kang (2 Views)12/27/2023 1:00 pm CLINICAL HISTORY: Preop for renal arteriogram COMPARISON: 2014 FINDINGS: The lungs appear clear of acute infiltrate. The heart is normal size IMPRESSION: No acute abnormalities displayed
[2023-12-28] MEDS ORDERED: FENTANYL CITR 100 MCG/2 ML ONE (06:53)
[2023-12-28] MEDS ORDERED: HEPA 1000U/500MLS 2,000 UNIT/1,000 ML BAG IV ONE (06:53)
[2023-12-28] MEDS ORDERED: LIDOCAINE 1% 20 ML MDV ONE (06:53)
[2023-12-28] MEDS ORDERED: CLOPIDOGREL 75 MG TABLET ONE (06:54)
[2023-12-28] MEDS ORDERED: ATROPINE SULF 1 MG/10 ML SYR IV ONE (06:54)
[2023-12-28] MEDS ORDERED: TICAGRELOR 90 MG TABLET PO ONE (06:54)
[2023-12-28] MEDS ORDERED: MIDAZOLAM HCL 2 MG/2 ML INJ ONE (06:54)
[2023-12-28] MEDS ORDERED: HEPARIN 5000 UNIT/ML 1 ML VIAL ONE (06:54)
[2023-12-28] MEDS ORDERED: HEPARIN 10,000 UNIT/10 ML VIAL IV ONE (06:54)
[2023-12-28] MEDS ORDERED: ASPIRIN 325 MG TAB ONE (06:55)
[2023-12-28] MEDS ORDERED: NA CHLORIDE 0.9% 500 ML ONE (07:03)
[2023-12-28 08:18] VITALS: TEMP 97.8
[2023-12-28 10:01] VITALS: BP 125/63; O2SAT 97
--- NOTE | 2023-12-28 16:35 | EKG ---
Test Date: 2023-12-27 Test Time: 12:48:26 Car Wash Attendant Automatic: ALONSO MEASUREMENT RESULTS: Intervals: Rate: 63 [place]: 168 QRSD: 80 QT: 414 QTc: 423 [place]: P: 80 [place]: 168 QRS: 75 T: 72 INTERPRETIVE STATEMENTS: Normal sinus rhythm ST abnormality, possible digitalis effect Abnormal ECG Compared to ECG 10/27/2018 17:41:22 ST (T wave) deviation now present Ventricular premature complex(es) no longer present T-wave abnormality no longer present Electronically Signed On 12-28-23 16:33:01 CDT by Jayce Garay
--- NOTE | 2023-12-28 19:20 | OP ---
Date of Procedure: 12/28/2023 Surgeon: Jayce Garay Procedure Performed: Renal angiogram. Indication For Procedure: Resistant hypertension with abnormal renal artery duplex. Complications: None. Estimated Blood Loss: Less than 50 cc. Sedation Time: 20 minutes with 2 of Versed and 50 of fentanyl. Access: Right common femoral artery, closed by an Angio-Seal. Description Of Procedure: After risks, benefits, and alternatives were explained to the patient, the patient agreed to proceed with the procedure and signed informed consent. The patient was brought [facility] to the assistant laboratory director, prepped and draped in sterile fashion. Time-out was performed. Sedation was ad ministered. Right common femoral artery ultrasound-guided micropuncture technique access was obtaine d. A JR4 catheter was advanced over J-wire through the lower abdominal aorta. Right and left renal angiograms were done using same catheter. Catheter was removed over a J-wire. Sheath was removed an d Angio-Seal was applied. Hemostasis was achieved. The patient was moved back to recovery in stable condition. Findings: 1.Right renal artery is patent. 2.Left renal artery is patent. Assessment And Plan: Normal bilateral renal arteries. The plan will be to continue aggressive medical management for hypertension. QUINONEZ/MODL Voice ID: [id number] Report ID: [id number]
== END 2023-12-28 09:40 ==
LOC: CCL 06:30
PROVIDERS: ATTEND Internal Medicine Interventional Cardiology
DX: R94.4 Abnormal results of kidney function studies (principal); I10 Essential (primary) hypertension; I1A.0 Resistant hypertension; I51.7 Cardiomegaly; E11.9 Type 2 diabetes mellitus without complications; E78.5 Hyperlipidemia, unspecified; F17.210 Nicotine dependence, cigarettes, uncomplicated; Z79.84 Long term (current) use of oral hypoglycemic drugs; Z79.899 Other long term (current) drug therapy; Z88.5 Allergy status to narcotic agent; Z82.49 Family history of ischemic heart disease and other diseases of the circulatory system
CPT/HCPCS: 36252; 36415; 71046; 76937; 80048; 85025; 85610; 85730; 93005; 99152; 99153; C1760; C1893; J0461; J1644; J2001; J2250; J3010; J7040

== ENCOUNTER 2024-02-06 11:17 | Observation (INO) | payer OTHER ==
--- OUTSIDE RECORDS SUMMARY | 2024-02-06 11:22 | XMS REPORT | Continuity of Care Document ---
Author Name Unknown Address [address] [facility] [place] [address] [facility] thconnect Address [address] [facility] [address] [place] [address] Care Team Providers Care Scientist/Engineer Name Role Phone Kj Ortega Attending Clinician Unavailable Payers Payer Name Policy Type Policy Number Effective Date Expirati on Date Source AET[employer] 53 [id number] Common [facility] Problems Condition Name Condition Details Condition Category Status Onset Date Resolution Date Last Treatment Date Treating Clinician Comments Source Low testostero ne Low testostero ne Problem [facility] [id number] Hypogonadi sm in male Problem [facility] Erectile dysfunctio n Erectile dysfunctio n Problem [facility] [id number] Benign prostatic hyperplasi a with lower urinary tract symptoms Problem [facility] [id number] Other obstructiv e and reflux uropathy Problem [facility] [id number] ED (erectile dysfunctio n) of organic origin Problem [facility] [id number] Hypogonado tropic hypogonadi sm Problem [facility] [id number] Hyperestro genism in male Problem [facility] Allergies, Adverse Reactions, Alerts Allergy Name Allergy Type Status Severity Reaction(s) Onset Date Inactive Date Treating Clinician Comments Source Codeine Codeine Active [facility] Social History Social Habit Start Date Stop Date Quantity Comments Source Sex Assigned At [facility] History of Tobacco Use [facility] Smoking Status Start Date Stop Date Source Former Smoker 2023-12-07 00:00:00 2023-12-07 00:00:00 [facility] Never Smoker [facility] Medications Ordered Medication Name Filled Medication Name Start Date Stop Date Current Medication? Ordering Clinician Indication Dosage Frequency Signature (SIG) Comments Components Source Flomax 0.4 MG Flomax 0.4 MG 4-0 09-14 00:00: 00 No 1{capsu le_at_b edtime} QD Flomax 0.4 MG Flomax 0.4 MG Flomax 0.4 MG 4-0 09-14 00:00: 00 No 1{capsu le_at_b edtime} QD Flomax 0.4 MG Anastrozole 1 MG Anastrozole 1 MG 3-0 03-16 00:00: 00 No Anastrozol e 1 MG Anastrozole 1 MG Anastrozole 1 MG 3-0 03-16 00:00: 00 No Anastrozol e 1 MG Anastrozole 1 MG Anastrozole 1 MG 3-0 03-16 00:00: 00 No Anastrozol e 1 MG Anastrozole 1 MG Anastrozole 1 MG 3-0 03-16 00:00: 00 No Anastrozol e 1 MG Anastrozole 1 MG Anastrozole 1 MG 3-0 03-16 00:00: 00 No Anastrozol e 1 MG Anastrozole 1 MG Anastrozole 1 MG 3-0 03-16 00:00: 00 No Anastrozol e 1 MG Anastrozole 1 MG Anastrozole 1 MG 3-0 03-16 00:00: 00 No Anastrozol e 1 MG Anastrozole 1 MG Anastrozole 1 MG 3-0 03-16 00:00: 00 No Anastrozol e 1 MG Anastrozole 1 MG Anastrozole 1 MG 3-0 03-16 00:00: 00 No Anastrozol e 1 MG Anastrozole 1 MG Anastrozole 1 MG 3-0 03-16 00:00: 00 No Anastrozol e 1 MG Anastrozole 1 MG Anastrozole 1 MG 3-0 03-16 00:00: 00 No Anastrozol e 1 MG Anastrozole 1 MG Anastrozole 1 MG 3-0 8- 00:00: 00 No Anastrozol e 1 MG Anastrozole 1 MG Anastrozole 1 MG 3-0 8- 00:00: 00 No Anastrozol e 1 MG Pregnyl Pregnyl 2023-0 7-20 00:00: 00 No 500{uni ts} [facility] Pregnyl Pregnyl 2023-0 7-20 00:00: 00 No [facility] Pregnyl Pregnyl 2023-0 7-20 00:00: 00 No [facility] Pregnyl Pregnyl 2023-0 7-20 00:00: 00 No 500{uni ts} [facility] Pregnyl Pregnyl 2023-0 7-20 00:00: 00 No 500{uni ts} [facility] Pregnyl Pregnyl 2023-0 7-20 00:00: 00 No 500{uni ts} [facility] Pregnyl Pregnyl 2023-0 7-20 00:00: 00 No 500{uni ts} [facility] Pregnyl Pregnyl 2023-0 7-20 00:00: 00 No 500{uni ts} [facility] Pregnyl Pregnyl 2023-0 7-20 00:00: 00 No 500{uni ts} [facility] Pregnyl Pregnyl 2023-0 7-20 00:00: 00 No 500{uni ts} [facility] Pregnyl Pregnyl 2023-0 7-20 00:00: 00 No 500{uni ts} [facility] Pregnyl Pregnyl 2023-0 7-20 00:00: 00 No [facility] Pregnyl Pregnyl 2023-0 7-20 00:00: 00 No [facility] Pregnyl Pregnyl 2023-0 7-18 00:00: 00 No 500{uni ts} [facility] Pregnyl Pregnyl 2023-0 7-18 00:00: 00 No [facility] Pregnyl Pregnyl 2023-0 7-18 00:00: 00 No [facility] Pregnyl Pregnyl 2023-0 7-18 00:00: 00 No 500{uni ts} [facility] Pregnyl Pregnyl 2023-0 7-18 00:00: 00 No 500{uni ts} [facility] Pregnyl Pregnyl 2023-0 7-18 00:00: 00 No 500{uni ts} [facility] Pregnyl Pregnyl 2023-0 7-18 00:00: 00 No 500{uni ts} [facility] Pregnyl Pregnyl 2023-0 7-18 00:00: 00 No 500{uni ts} [facility] Pregnyl Pregnyl 2023-0 7-18 00:00: 00 No 500{uni ts} [facility] Pregnyl Pregnyl 2023-0 7-18 00:00: 00 No 500{uni ts} [facility] Pregnyl Pregnyl 2023-0 7-18 00:00: 00 No 500{uni ts} [facility] Pregnyl Pregnyl 2023-0 7-18 00:00: 00 No [facility] Pregnyl Pregnyl 2023-0 7-18 00:00: 00 No [facility] Pregnyl Pregnyl 2023-0 7-13 00:00: 00 No 500{uni ts} [facility] Pregnyl Pregnyl 2023-0 7-13 00:00: 00 No [facility] Pregnyl Pregnyl 2023-0 7-13 00:00: 00 No [facility] Pregnyl Pregnyl 2023-0 7-13 00:00: 00 No 500{uni ts} [facility] Pregnyl Pregnyl 2023-0 7-13 00:00: 00 No 500{uni ts} [facility] Pregnyl Pregnyl 2023-0 7-13 00:00: 00 No 500{uni ts} [facility] Pregnyl Pregnyl 2023-0 7-13 00:00: 00 No 500{uni ts} [facility] Pregnyl Pregnyl 2023-0 7-13 00:00: 00 No 500{uni ts} [facility] Pregnyl Pregnyl 2023-0 7-13 00:00: 00 No 500{uni ts} [facility] Pregnyl Pregnyl 2023-0 7-13 00:00: 00 No 500{uni ts} [facility] Pregnyl Pregnyl 2023-0 7-13 00:00: 00 No 500{uni ts} [facility] Pregnyl Pregnyl 2023-0 7-13 00:00: 00 No [facility] Pregnyl Pregnyl 2023-0 7-13 00:00: 00 No [facility] Pregnyl Pregnyl 2023-0 7-11 00:00: 00 No 500{uni ts} [facility] Pregnyl Pregnyl 2023-0 7-11 00:00: 00 No [facility] Pregnyl Pregnyl 2023-0 7-11 00:00: 00 No [facility] Pregnyl Pregnyl 2023-0 7-11 00:00: 00 No 500{uni ts} [facility] Pregnyl Pregnyl 2023-0 7-11 00:00: 00 No 500{uni ts} [facility] Pregnyl Pregnyl 2023-0 7-11 00:00: 00 No 500{uni ts} [facility] Pregnyl Pregnyl 2023-0 7-11 00:00: 00 No 500{uni ts} [facility] Pregnyl Pregnyl 2023-0 7-11 00:00: 00 No 500{uni ts} [facility] Pregnyl Pregnyl 2023-0 7-11 00:00: 00 No 500{uni ts} [facility] Pregnyl Pregnyl 2023-0 7-11 00:00: 00 No 500{uni ts} [facility] Pregnyl Pregnyl 2023-0 7-11 00:00: 00 No 500{uni ts} [facility] Pregnyl Pregnyl 2023-0 7- 00:00: 00 No [facility] Pregnyl Pregnyl 2023-0 7- 00:00: 00 No [facility] Pregnyl Pregnyl 2023-0 7- 00:00: 00 No 500{uni ts} [facility] Pregnyl Pregnyl 2023-0 7- 00:00: 00 No [facility] Pregnyl Pregnyl 2023-0 7- 00:00: 00 No [facility] Pregnyl Pregnyl 2023-0 7- 00:00: 00 No 500{uni ts} [facility] Pregnyl Pregnyl 2023-0 7- 00:00: 00 No 500{uni ts} [facility] Pregnyl Pregnyl 2023-0 7- 00:00: 00 No 500{uni ts} [facility] Pregnyl Pregnyl 2023-0 7- 00:00: 00 No 500{uni ts} [facility] Pregnyl Pregnyl 2023-0 7- 00:00: 00 No 500{uni ts} [facility] Pregnyl Pregnyl 2023-0 7- 00:00: 00 No 500{uni ts} [facility] Pregnyl Pregnyl 2023-0 7- 00:00: 00 No 500{uni ts} [facility] Pregnyl Pregnyl 2023-0 7- 00:00: 00 No 500{uni ts} [facility] Pregnyl Pregnyl 2023-0 7- 00:00: 00 No [facility] Pregnyl Pregnyl 2023-0 7- 00:00: 00 No [facility] Pregnyl Pregnyl 2023-0 7- 00:00: 00 No 500{uni ts} [facility] Pregnyl Pregnyl 2023-0 7- 00:00: 00 No [facility] Pregnyl Pregnyl 2023-0 7- 00:00: 00 No [facility] Pregnyl Pregnyl 2023-0 7- 00:00: 00 No 500{uni ts} [facility] Pregnyl Pregnyl 2023-0 7- 00:00: 00 No 500{uni ts} [facility] Pregnyl Pregnyl 2023-0 7- 00:00: 00 No 500{uni ts} [facility] Pregnyl Pregnyl 2023-0 7- 00:00: 00 No 500{uni ts} [facility] Pregnyl Pregnyl 2023-0 7- 00:00: 00 No 500{uni ts} [facility] Pregnyl Pregnyl 2023-0 7- 00:00: 00 No 500{uni ts} [facility] Pregnyl Pregnyl 2023-0 7- 00:00: 00 No 500{uni ts} [facility] Pregnyl Pregnyl 2023-0 7- 00:00: 00 No 500{uni ts} [facility] Pregnyl Pregnyl 2023-0 7- 00:00: 00 No [facility] Pregnyl Pregnyl 2023-0 7- 00:00: 00 No [facility] Pregnyl Pregnyl 2023-0 6- 00:00: 00 No 2500{un its} [facility] Pregnyl Pregnyl 2023-0 6- 00:00: 00 No [facility] Pregnyl Pregnyl 2023-0 6- 00:00: 00 No [facility] Pregnyl Pregnyl 2023-0 6- 00:00: 00 No 2500{un its} [facility] Pregnyl Pregnyl 2023-0 6- 00:00: 00 No 2500{un its} [facility] Pregnyl Pregnyl 2023-0 6- 00:00: 00 No 2500{un its} [facility] Pregnyl Pregnyl 2023-0 01-19 00:00: 00 No 2500{un its} [facility] Pregnyl Pregnyl 2023-0 01-19 00:00: 00 No 2500{un its} [facility] Pregnyl Pregnyl 2023-0 01-19 00:00: 00 No 2500{un its} [facility] Pregnyl Pregnyl 2023-0 01-19 00:00: 00 No 2500{un its} [facility] Pregnyl Pregnyl 2023-0 01-19 00:00: 00 No 2500{un its} [facility] Pregnyl Pregnyl 2023-0 01-19 00:00: 00 No [facility] Pregnyl Pregnyl 2023-0 01-19 00:00: 00 No [facility] clomiPHENE Citrate 50 MG clomiPHENE Citrate 50 MG 3-0 01-17 00:00: 00 No 1{table t} QD clomiPHENE Citrate 50 MG clomiPHENE Citrate 50 MG clomiPHENE Citrate 50 MG 3-0 01-17 00:00: 00 No QD clomiPHENE Citrate 50 MG clomiPHENE Citrate 50 MG clomiPHENE Citrate 50 MG 3-0 01-17 00:00: 00 No QD clomiPHENE Citrate 50 MG clomiPHENE Citrate 50 MG clomiPHENE Citrate 50 MG 3-0 01-17 00:00: 00 No QD clomiPHENE Citrate 50 MG clomiPHENE Citrate 50 MG clomiPHENE Citrate 50 MG 3-0 01-17 00:00: 00 No QD clomiPHENE Citrate 50 MG clomiPHENE Citrate 50 MG clomiPHENE Citrate 50 MG 3-0 01-17 00:00: 00 No QD clomiPHENE Citrate 50 MG clomiPHENE Citrate 50 MG clomiPHENE Citrate 50 MG 3-0 01-17 00:00: 00 No QD clomiPHENE Citrate 50 MG clomiPHENE Citrate 50 MG clomiPHENE Citrate 50 MG 3-0 01-17 00:00: 00 No QD clomiPHENE Citrate 50 MG clomiPHENE Citrate 50 MG clomiPHENE Citrate 50 MG 3-0 01-17 00:00: 00 No QD clomiPHENE Citrate 50 MG clomiPHENE Citrate 50 MG clomiPHENE Citrate 50 MG 3-0 01-17 00:00: 00 No 1{table t} QD clomiPHENE Citrate 50 MG clomiPHENE Citrate 50 MG clomiPHENE Citrate 50 MG 3-0 01-17 00:00: 00 No 1{table t} QD clomiPHENE Citrate 50 MG clomiPHENE Citrate 50 MG clomiPHENE Citrate 50 MG 3-0 01-17 00:00: 00 No QD clomiPHENE Citrate 50 MG clomiPHENE Citrate 50 MG clomiPHENE Citrate 50 MG 2022-0 01-17 00:00: 00 No QD clomiPHENE Citrate 50 MG Cialis 20 MG Cialis 20 MG No 1{table t_as_ne eded} Cialis 20 MG metFORMIN HCl 500 MG metFORMIN HCl 500 MG No 1{table t_with_ a_meal} QD metFORMIN HCl 500 MG Aspirin 81 81 MG Aspirin 81 81 MG No 1{table t} QD Aspirin 81 81 MG Sildenafil Citrate 100 MG Sildenafil Citrate 100 MG No 1{table t_as_ne eded} Sildenafil Citrate 100 MG Fenofibrate 145 MG Fenofibrate 145 MG No 1{table t} QD Fenofibrat e 145 MG Potassium Chloride 20 MEQ Potassium Chloride 20 MEQ No 1{packe t_with_ food} QD Potassium Chloride 20 MEQ Chlorthalid one 50 MG Chlorthalid one 50 MG No 1{table t_in_ e_morni ng_with _food} QD Chlorthali done 50 MG Zinc 100 MG Zinc 100 MG No 1{table t} QD Zinc 100 MG Aleve 220 MG Aleve 220 MG No BID Aleve 220 MG glipiZIDE 5 MG glipiZIDE 5 MG No QD glipiZIDE 5 MG Cialis 20 MG Cialis 20 MG No 1{table t_as_ne eded} Cialis 20 MG metFORMIN HCl 500 MG metFORMIN HCl 500 MG No 1{table t_with_ a_meal} QD metFORMIN HCl 500 MG Aspirin 81 81 MG Aspirin 81 81 MG No 1{table t} QD Aspirin 81 81 MG Sildenafil Citrate 100 MG Sildenafil Citrate 100 MG No 1{table t_as_ne eded} Sildenafil Citrate 100 MG Fenofibrate 145 MG Fenofibrate 145 MG No 1{table t} QD Fenofibrat e 145 MG Potassium Chloride 20 MEQ Potassium Chloride 20 MEQ No 1{packe t_with_ food} QD Potassium Chloride 20 MEQ Chlorthalid one 50 MG Chlorthalid one 50 MG No 1{table t_in_ e_morni ng_with _food} QD Chlorthali done 50 MG Zinc 100 MG Zinc 100 MG No 1{table t} QD Zinc 100 MG Aleve 220 MG Aleve 220 MG No BID Aleve 220 MG glipiZIDE 5 MG glipiZIDE 5 MG No QD glipiZIDE 5 MG Aleve 220 MG Aleve 220 MG No BID Aleve 220 MG Cialis 20 MG Cialis 20 MG No 1{table t_as_ne eded} Cialis 20 MG metFORMIN HCl 500 MG metFORMIN HCl 500 MG No 1{table t_with_ a_meal} QD metFORMIN HCl 500 MG Aspirin 81 81 MG Aspirin 81 81 MG No 1{table t} QD Aspirin 81 81 MG Sildenafil Citrate 100 MG Sildenafil Citrate 100 MG No 1{table t_as_ne eded} Sildenafil Citrate 100 MG Fenofibrate 145 MG Fenofibrate 145 MG No 1{table t} QD Fenofibrat e 145 MG Potassium Chloride 20 MEQ Potassium Chloride 20 MEQ No 1{packe t_with_ food} QD Potassium Chloride 20 MEQ Chlorthalid one 50 MG Chlorthalid one 50 MG No 1{table t_in_ e_morni ng_with _food} QD Chlorthali done 50 MG Zinc 100 MG Zinc 100 MG No 1{table t} QD Zinc 100 MG metFORMIN HCl 500 MG metFORMIN HCl 500 MG No 1{table t_with_ a_meal} QD metFORMIN HCl 500 MG Aleve 220 MG Aleve 220 MG No BID Aleve 220 MG glipiZIDE 5 MG glipiZIDE 5 MG No QD glipiZIDE 5 MG Sildenafil Citrate 100 MG Sildenafil Citrate 100 MG No 1{table t_as_ne eded} Sildenafil Citrate 100 MG Cialis 20 MG Cialis 20 MG No 1{table t_as_ne eded} Cialis 20 MG metFORMIN HCl 500 MG metFORMIN HCl 500 MG No 1{table t_with_ a_meal} QD metFORMIN HCl 500 MG Aspirin 81 81 MG Aspirin 81 81 MG No 1{table t} QD Aspirin 81 81 MG Sildenafil Citrate 100 MG Sildenafil Citrate 100 MG No 1{table t_as_ne eded} Sildenafil Citrate 100 MG Fenofibrate 145 MG Fenofibrate 145 MG No 1{table t} QD Fenofibrat e 145 MG Potassium Chloride 20 MEQ Potassium Chloride 20 MEQ No 1{packe t_with_ food} QD Potassium Chloride 20 MEQ Potassium Chloride 20 MEQ Potassium Chloride 20 MEQ No 1{packe t_with_ food} QD Potassium Chloride 20 MEQ Chlorthalid one 50 MG Chlorthalid one 50 MG No 1{table t_in_ e_morni ng_with _food} QD Chlorthali done 50 MG Zinc 100 MG Zinc 100 MG No 1{table t} QD Zinc 100 MG Aleve 220 MG Aleve 220 MG No BID Aleve 220 MG glipiZIDE 5 MG glipiZIDE 5 MG No QD glipiZIDE 5 MG Aspirin 81 81 MG Aspirin 81 81 MG No 1{table t} QD Aspirin 81 81 MG Cialis 20 MG Cialis 20 MG No 1{table t_as_ne eded} Cialis 20 MG metFORMIN HCl 500 MG metFORMIN HCl 500 MG No 1{table t_with_ a_meal} QD metFORMIN HCl 500 MG Aspirin 81 81 MG Aspirin 81 81 MG No 1{table t} QD Aspirin 81 81 MG Zinc 100 MG Zinc 100 MG No 1{table t} QD Zinc 100 MG Sildenafil Citrate 100 MG Sildenafil Citrate 100 MG No 1{table t_as_ne eded} Sildenafil Citrate 100 MG Fenofibrate 145 MG Fenofibrate 145 MG No 1{table t} QD Fenofibrat e 145 MG Potassium Chloride 20 MEQ Potassium Chloride 20 MEQ No 1{packe t_with_ food} QD Potassium Chloride 20 MEQ Chlorthalid one 50 MG Chlorthalid one 50 MG No 1{table t_in_ e_morni ng_with _food} QD Chlorthali done 50 MG Zinc 100 MG Zinc 100 MG No 1{table t} QD Zinc 100 MG Aleve 220 MG Aleve 220 MG No BID Aleve 220 MG glipiZIDE 5 MG glipiZIDE 5 MG No QD glipiZIDE 5 MG Cialis 20 MG Cialis 20 MG No 1{table t} Cialis 20 MG Cialis 20 MG Cialis 20 MG No 1{table t_as_ne eded} Cialis 20 MG metFORMIN HCl 500 MG metFORMIN HCl 500 MG No 1{table t_with_ a_meal} QD metFORMIN HCl 500 MG Aspirin 81 81 MG Aspirin 81 81 MG No 1{table t} QD Aspirin 81 81 MG Sildenafil Citrate 100 MG Sildenafil Citrate 100 MG No 1{table t_as_ne eded} Sildenafil Citrate 100 MG Fenofibrate 145 MG Fenofibrate 145 MG No 1{table t} QD Fenofibrat e 145 MG Potassium Chloride 20 MEQ Potassium Chloride 20 MEQ No 1{packe t_with_ food} QD Potassium Chloride 20 MEQ Chlorthalid one 50 MG Chlorthalid one 50 MG No 1{table t_in_th e_morni ng_with _food} QD Chlorthali done 50 MG Zinc 100 MG Zinc 100 MG No 1{table t} QD Zinc 100 MG Aleve 220 MG Aleve 220 MG No BID Aleve 220 MG glipiZIDE 5 MG glipiZIDE 5 MG No QD glipiZIDE 5 MG Cialis 20 MG Cialis 20 MG No 1{table t_as_ne eded} Cialis 20 MG metFORMIN HCl 500 MG metFORMIN HCl 500 MG No 1{table t_with_ a_meal} QD metFORMIN HCl 500 MG Aspirin 81 81 MG Aspirin 81 81 MG No 1{table t} QD Aspirin 81 81 MG Sildenafil Citrate 100 MG Sildenafil Citrate 100 MG No 1{table t_as_ne eded} Sildenafil Citrate 100 MG Fenofibrate 145 MG Fenofibrate 145 MG No 1{table t} QD Fenofibrat e 145 MG Potassium Chloride 20 MEQ Potassium Chloride 20 MEQ No 1{packe t_with_ food} QD Potassium Chloride 20 MEQ Chlorthalid one 50 MG Chlorthalid one 50 MG No 1{table t_in_ e_morni ng_with _food} QD Chlorthali done 50 MG Zinc 100 MG Zinc 100 MG No 1{table t} QD Zinc 100 MG Aleve 220 MG Aleve 220 MG No BID Aleve 220 MG glipiZIDE 5 MG glipiZIDE 5 MG No QD glipiZIDE 5 MG Cialis 20 MG Cialis 20 MG No 1{table t_as_ne eded} Cialis 20 MG metFORMIN HCl 500 MG metFORMIN HCl 500 MG No 1{table t_with_ a_meal} QD metFORMIN HCl 500 MG Aspirin 81 81 MG Aspirin 81 81 MG No 1{table t} QD Aspirin 81 81 MG Sildenafil Citrate 100 MG Sildenafil Citrate 100 MG No 1{table t_as_ne eded} Sildenafil Citrate 100 MG Fenofibrate 145 MG Fenofibrate 145 MG No 1{table t} QD Fenofibrat e 145 MG Potassium Chloride 20 MEQ Potassium Chloride 20 MEQ No 1{packe t_with_ food} QD Potassium Chloride 20 MEQ Chlorthalid one 50 MG Chlorthalid one 50 MG No 1{table t_in_th e_morni ng_with _food} QD Chlorthali done 50 MG Zinc 100 MG Zinc 100 MG No 1{table t} QD Zinc 100 MG Aleve 220 MG Aleve 220 MG No BID Aleve 220 MG glipiZIDE 5 MG glipiZIDE 5 MG No QD glipiZIDE 5 MG Cialis 20 MG Cialis 20 MG No 1{table t_as_ne eded} Cialis 20 MG metFORMIN HCl 500 MG metFORMIN HCl 500 MG No 1{table t_with_ a_meal} QD metFORMIN HCl 500 MG Aspirin 81 81 MG Aspirin 81 81 MG No 1{table t} QD Aspirin 81 81 MG Sildenafil Citrate 100 MG Sildenafil Citrate 100 MG No 1{table t_as_ne eded} Sildenafil Citrate 100 MG Fenofibrate 145 MG Fenofibrate 145 MG No 1{table t} QD Fenofibrat e 145 MG Potassium Chloride 20 MEQ Potassium Chloride 20 MEQ No 1{packe t_with_ food} QD Potassium Chloride 20 MEQ Chlorthalid one 50 MG Chlorthalid one 50 MG No 1{table t_in_th e_morni ng_with _food} QD Chlorthali done 50 MG Zinc 100 MG Zinc 100 MG No 1{table t} QD Zinc 100 MG Aleve 220 MG Aleve 220 MG No BID Aleve 220 MG glipiZIDE 5 MG glipiZIDE 5 MG No QD glipiZIDE 5 MG Aleve 220 MG Aleve 220 MG No BID Aleve 220 MG metFORMIN HCl 500 MG metFORMIN HCl 500 MG No 1{table t_with_ a_meal} QD metFORMIN HCl 500 MG Iron Iron No Vitamin B12 Sildenafil Citrate 100 MG Sildenafil Citrate 100 MG No 1{table t_as_ne eded} Sildenafil Citrate 100 MG Aleve 220 MG Aleve 220 MG No BID Aleve 220 MG metFORMIN HCl 500 MG metFORMIN HCl 500 MG No 1{table t_with_ a_meal} QD metFORMIN HCl 500 MG glipiZIDE 5 MG glipiZIDE 5 MG No QD glipiZIDE 5 MG Fenofibrate 145 MG Fenofibrate 145 MG No 1{table t} QD Fenofibrat e 145 MG Zinc 100 MG Zinc 100 MG No 1{table t} QD Zinc 100 MG Aspirin 81 81 MG Aspirin 81 81 MG No 1{table t} QD Aspirin 81 81 MG Chlorthalid one 50 MG Chlorthalid one 50 MG No 1{table t_in_ e_morni ng_with _food} QD Chlorthali done 50 MG Cialis 20 MG Cialis 20 MG No 1{table t_as_ne eded} Cialis 20 MG Potassium Chloride 20 MEQ Potassium Chloride 20 MEQ No 1{packe t_with_ food} QD Potassium Chloride 20 MEQ Sildenafil Citrate 100 MG Sildenafil Citrate 100 MG No 1{table t_as_ne eded} Sildenafil Citrate 100 MG Potassium Chloride 20 MEQ Potassium Chloride 20 MEQ No 1{packe t_with_ food} QD Potassium Chloride 20 MEQ metFORMIN HCl 500 MG metFORMIN HCl 500 MG No 1{table t_with_ a_meal} QD metFORMIN HCl 500 MG Iron Iron No Iron Aspirin 81 81 MG Aspirin 81 81 MG No 1{table t} QD Aspirin 81 81 MG Sildenafil Citrate 100 MG Sildenafil Citrate 100 MG No 1{table t_as_ne eded} Sildenafil Citrate 100 MG Aleve 220 MG Aleve 220 MG No BID Aleve 220 MG glipiZIDE 5 MG glipiZIDE 5 MG No QD glipiZIDE 5 MG Fenofibrate 145 MG Fenofibrate 145 MG No 1{table t} QD Fenofibrat e 145 MG Zinc 100 MG Zinc 100 MG No 1{table t} QD Zinc 100 MG Aspirin 81 81 MG Aspirin 81 81 MG No 1{table t} QD Aspirin 81 81 MG Chlorthalid one 50 MG Chlorthalid one 50 MG No 1{table t_in_ e_morni ng_with _food} QD Chlorthali done 50 MG Zinc 100 MG Zinc 100 MG No 1{table t} QD Zinc 100 MG Cialis 20 MG Cialis 20 MG No 1{table t_as_ne eded} Cialis 20 MG Potassium Chloride 20 MEQ Potassium Chloride 20 MEQ No 1{packe t_with_ food} QD Potassium Chloride 20 MEQ Cialis 20 MG Cialis 20 MG No 1{table t} Cialis 20 MG Cialis 20 MG Cialis 20 MG No 1{table t_as_ne eded} Cialis 20 MG metFORMIN HCl 500 MG metFORMIN HCl 500 MG No 1{table t_with_ a_meal} QD metFORMIN HCl 500 MG Aspirin 81 81 MG Aspirin 81 81 MG No 1{table t} QD Aspirin 81 81 MG Sildenafil Citrate 100 MG Sildenafil Citrate 100 MG No 1{table t_as_ne eded} Sildenafil Citrate 100 MG Fenofibrate 145 MG Fenofibrate 145 MG No 1{table t} QD Fenofibrat e 145 MG Potassium Chloride 20 MEQ Potassium Chloride 20 MEQ No 1{packe t_with_ food} QD Potassium Chloride 20 MEQ Chlorthalid one 50 MG Chlorthalid one 50 MG No 1{table t_in_ e_morni ng_with _food} QD Chlorthali done 50 MG Zinc 100 MG Zinc 100 MG No 1{table t} QD Zinc 100 MG Aleve 220 MG Aleve 220 MG No BID Aleve 220 MG glipiZIDE 5 MG glipiZIDE 5 MG No QD glipiZIDE 5 MG Cialis 20 MG Cialis 20 MG No 1{table t_as_ne eded} Cialis 20 MG metFORMIN HCl 500 MG metFORMIN HCl 500 MG No 1{table t_with_ a_meal} QD metFORMIN HCl 500 MG Aspirin 81 81 MG Aspirin 81 81 MG No 1{table t} QD Aspirin 81 81 MG Sildenafil Citrate 100 MG Sildenafil Citrate 100 MG No 1{table t_as_ne eded} Sildenafil Citrate 100 MG Fenofibrate 145 MG Fenofibrate 145 MG No 1{table t} QD Fenofibrat e 145 MG Potassium Chloride 20 MEQ Potassium Chloride 20 MEQ No 1{packe t_with_ food} QD Potassium Chloride 20 MEQ Chlorthalid one 50 MG Chlorthalid one 50 MG No 1{table t_in_ e_morni ng_with _food} QD Chlorthali done 50 MG Zinc 100 MG Zinc 100 MG No 1{table t} QD Zinc 100 MG Aleve 220 MG Aleve 220 MG No BID Aleve 220 MG glipiZIDE 5 MG glipiZIDE 5 MG No QD glipiZIDE 5 MG Vital Signs Vital Name Observation Time Observation Value Comments S ource height 2023-12-07 09:00:00 71 [in_i] Commo n [facility] weight 2023-12-07 09:00:00 213.0 [lb_av] Co mmon [facility] temperature 2023-12-07 09:00:00 98.1 [degF] Com [facility] bmi 2023-12-07 09:00:00 29.7 kg/m2 Commo n [facility] oximetry 2023-12-07 09:00:00 92 % Commo n [facility] respiratory rate 2023-12-07 09:00:00 18 /min Common [facility] blood pressure systolic 2023-12-07 09:00:00 175 mm[Hg] [facility] blood pressure diastolic 2023-12-07 09:00:00 79 mm[Hg] Common [facility] height 2023-09-14 08:00:00 71 [in_i] Commo n [facility] weight 2023-09-14 08:00:00 215.8 [lb_av] Co mmon [facility] temperature 2023-09-14 08:00:00 98.6 [degF] Com [facility] bmi 2023-09-14 08:00:00 30.09 kg/m2 Comm on [facility] oximetry 2023-09-14 08:00:00 97 % Commo n [facility] respiratory rate 2023-09-14 08:00:00 18 /min Common [facility] blood pressure systolic 2023-09-14 08:00:00 152 mm[Hg] Common [facility] blood pressure diastolic 2023-09-14 08:00:00 80 mm[Hg] Common [facility] height 2023-03-16 08:45:00 71 [in_i] Commo n [facility] weight 2023-03-16 08:45:00 213.8 [lb_av] Co mmon [facility] temperature 2023-03-16 08:45:00 98 [degF] Comm on [facility] bmi 2023-03-16 08:45:00 29.82 kg/m2 Comm on [facility] oximetry 2023-03-16 08:45:00 99 % Commo n [facility] respiratory rate 2023-03-16 08:45:00 18 /min Common [facility] blood pressure systolic 2023-03-16 08:45:00 148 mm[Hg] [facility] blood pressure diastolic 2023-03-16 08:45:00 75 mm[Hg] Common [facility] height 2023-01-24 09:00:00 71 [in_i] Commo n [facility] weight 2023-01-24 09:00:00 213 [lb_av] Comm on [facility] temperature 2023-01-24 09:00:00 98.6 [degF] Com mon [facility] bmi 2023-01-24 09:00:00 29.7 kg/m2 Commo n [facility] blood pressure systolic 2023-01-24 09:00:00 132 mm[Hg] [facility] blood pressure diastolic 2023-01-24 09:00:00 68 mm[Hg] [facility] bmi 2023-01-19 10:15:00 29.7 kg/m2 Commo n [facility] oximetry 2023-01-19 10:15:00 99 % Commo n [facility] respiratory rate 2023-01-19 10:15:00 18 /min Common [facility] blood pressure systolic 2023-01-19 10:15:00 140 mm[Hg] [facility] blood pressure diastolic 2023-01-19 10:15:00 68 mm[Hg] [facility] height 2023-01-19 10:15:00 71 [in_i] Commo n [facility] weight 2023-01-19 10:15:00 213 [lb_av] Comm on [facility] temperature 2023-01-19 10:15:00 98.6 [degF] Com mon [facility] height 2022-11-17 10:30:00 71 [in_i] Commo n [facility] weight 2022-11-17 10:30:00 213 [lb_av] Comm on [facility] temperature 2022-11-17 10:30:00 98.4 [degF] Com mon [facility] bmi 2022-11-17 10:30:00 29.7 kg/m2 Commo n [facility] oximetry 2022-11-17 10:30:00 99 % Commo n [facility] respiratory rate 2022-11-17 10:30:00 18 /min Common [facility] blood pressure systolic 2022-11-17 10:30:00 146 mm[Hg] Common [facility] blood pressure diastolic 2022-11-17 10:30:00 82 mm[Hg] Common [facility] height 2022-08-26 09:30:00 71 [in_i] Commo n [facility] weight 2022-08-26 09:30:00 217.8 [lb_av] Co mmon [facility] temperature 2022-08-26 09:30:00 98.6 [degF] Com mon [facility] bmi 2022-08-26 09:30:00 30.37 kg/m2 Comm on [facility] oximetry 2022-08-26 09:30:00 96 % Commo n [facility] respiratory rate 2022-08-26 09:30:00 18 /min Common [facility] blood pressure systolic 2022-08-26 09:30:00 153 mm[Hg] [facility] blood pressure diastolic 2022-08-26 09:30:00 78 mm[Hg] [facility] Encounters Start Date/Time End Date/Time Encounter Type Admission Type Attending Clinicians Care Facility Care Department Encounter ID Source 2022-08-26 09:14:03 Outpatient Kj Ortega STNI [facility] [id number] [facility] 2022-06-21 17:41:00 Outpatient Jean CarlososunKj [facility]LMLC [facility] [id number] [facility] 2022-04-20 14:58:02 Outpatient Jean CarlososunKj [facility]C [facility] [id number] [facility] 2021-08-19 12:53:14 Outpatient Kj Ortega [facility] ST[facility] [id number] [facility] 2023-12-07 00:00:00 2023-12-07 00:00:00 OFFICE VISIT ESTAB PT LEVEL 5 [facility] ST[facility] [id number] [facility] 2023-11-17 00:00:00 2023-11-17 00:00:00 (TEL) [facility]LMLC ST[facility] [id number] [facility] 2023-09-14 00:00:00 2023-09-14 00:00:00 OFFICE VISIT ESTAB PT LEVEL 5 [facility] ST[facility] [id number] [facility] 2023-03-22 00:00:00 2023-03-22 00:00:00 (TEL) [facility]LMLC ST[facility] [id number] [facility] 2023-03-16 00:00:00 2023-03-16 00:00:00 OFFICE VISIT ESTAB PT LEVEL 4 [facility] ST[facility] [id number] [facility] 2023-02-10 00:00:00 2023-02-10 00:00:00 ([place]) Nurse Visit [facility]C [facility] [id number] [facility] 2023-02-08 00:00:00 2023-02-08 00:00:00 ([place]) Nurse Visit [facility] [id number] [facility] 2023-02-03 00:00:00 2023-02-03 00:00:00 ([place]) Nurse Visit [facility] [id number] [facility] 2023-02-01 00:00:00 2023-02-01 00:00:00 ([place]) Nurse Visit [facility] [id number] [facility] 2023-01-26 00:00:00 2023-01-26 00:00:00 ([place]) Nurse Visit [facility] [id number] [facility] 2023-01-24 00:00:00 2023-01-24 00:00:00 ([place]) Nurse Visit [facility] [id number] [facility] 2023-01-19 00:00:00 2023-01-19 00:00:00 ([place]) Nurse Visit [facility] [id number] [facility] 2023-01-17 00:00:00 2023-01-17 00:00:00 OFFICE VISIT ESTAB PT LEVEL 3 [facility] ST[facility] [id number] [facility] 2022-11-17 00:00:00 2022-11-17 00:00:00 OFFICE VISIT ESTAB PT LEVEL 2 [facility] STL[facility] [id number] [facility] 2022-08-30 00:00:00 2022-08-30 00:00:00 (TEL) STL[facility]C ST[facility]C [id number] [facility] 2022-08-26 00:00:00 2022-08-26 00:00:00 OFFICE VISIT NEW PT LEVEL 2 [facility] ST[facility] [id number] [facility]
--- NOTE | 2024-02-06 11:42 | RAD REPORT ---
EXAM DESCRIPTION: CT - Ct Stroke Brain Wo Cont - 02/06/2024 11:35 am CLINICAL HISTORY: Right-sided numbness COMPARISON: none TECHNIQUE: Computed axial tomography of the head was obtained. All CT scans are performed using dose optimization technique as appropriate and may include automated exposure control or mA/KV adjustment according to patient size. FINDINGS: An intracranial bleed is not seen . The ventricles are normal in caliber. No extra-axial fluid collection is noted. 10 millimeter low-density area right frontal lobe adjacent to the right lateral ventricle it could be an area of ischemia secondary to small vessel disease or old infarct. Fluid within the sinuses/ mastoids is not seen. IMPRESSION: No acute intracranial abnormality is seen. If patient's symptoms persist MRI of the bra in would be recommended Anirudh Page of the emergency room was notified at 11:34 a.m. February 06, 2024
[2024-02-06 11:53] LABS: Absolute Basophils 0.1 K/uL (0-0.5); Absolute Eosinophils 0.2 K/uL (0-0.5); Absolute Lymphocytes (CBC) 2.1 K/uL (0.7-4.9); Absolute Monocytes 0.7 K/uL (0.1-1.3); Absolute Neutrophil 4.6 K/uL (1.8-8.0); Basophils % 1.1 % (0-1.3); Hematocrit 44.4 % (39.6-49.0); Hemoglobin 14.7 g/dL (13.6-17.9); Lymphocytes % 27.4 % (15.3-44.8); MCH 30.2 pg (27.0-35.0); MCHC 33.1 g/dL (32.0-36.0); MPV 8.7 fL (7.6-11.3); Monocytes % 9.1 % (3.3-12.3); Neutrophils % 59.4 % (41.7-73.7); Nucleated Red Blood Cells % 0.1 % (0-0); Platelets 172 thou/uL (152-406); RBC Red Blood Cell Count 4.88 M/uL (4.33-5.43); Red Cell Distribution Width 14.4 % (12.1-15.2)
[2024-02-06] MEDS ORDERED: TENECTEPLASE 50 MG/10 ML VIAL IV ONE (11:54)
--- NOTE | 2024-02-06 12:01 | RAD REPORT ---
EXAM DESCRIPTION: CTHead angio02/06/2024 11:44 am CLINICAL HISTORY: Right numbness COMPARISON: none TECHNIQUE: 100 cc Isovue [address] angiogram of the head was obtained. 3D MIPS reconstruction performed. All CT scans are performed using dose optimization technique as appropriate and may include automated exposure control or mA/KV adjustment according to patient size. FINDINGS: The basilar, anterior cerebral, middle cerebral and posterior cerebral arteries do not dem onstrate a significant stenosis Mild calcified plaque distal internal carotid arteries An aneurysm is not seen No large vessel occlusion IMPRESSION: No significant vascular abnormality is displayed
[2024-02-06 12:03] LABS: PT Prothrombin Time 12.4 SECONDS (9.4-12.5); PTT, Activated Partial Thromb 29.3 SECONDS (24.3-36.9); Protime INR 1.11
--- NOTE | 2024-02-06 12:05 | RAD REPORT ---
EXAM DESCRIPTION: Pato Angio02/06/2024 11:44 am CLINICAL HISTORY: Right-sided numbness COMPARISON: None TECHNIQUE: 100 cc Isovue [address] angiogram of the neck was obtained. 3D MIPS reconstruction performed. All CT scans are performed using dose optimization technique as appropriate and may include automated exposure control or mA/KV adjustment according to patient size. FINDINGS: Visualized great vessels unremarkable Proximal left internal carotid artery dilated measuring 1 centimeter. It contains moderate thrombus. Mild plaque within the remainder of the common carotid, internal carotid and external carotid arterie s. Right vertebral artery somewhat hypoplastic. Vertebral arteries are unremarkable No dissection is seen. No high-grade stenosis [place] Mild stenosis 0 to 49 % Moderate stenosis 50-69% Severe stenosis 70-99% IMPRESSION: Moderate plaque within the proximal left internal carotid artery. This results in an approximately 35 % stenosis
[2024-02-06 12:10] LABS: ALT/SGPT 27 U/L (16-61); Albumin 3.9 g/dL (3.4-5.0); Albumin/Globulin Ratio 1.1 (1.1-1.8); Alkaline Phosphatase 49 U/L (45-117); Anion Gap 8.4 mEq/L (5.0-15.0); BUN Blood Urea Nitrogen 22 mg/dL (7-18); Bicarbonate 25 mEq/L (21-32); Bilirubin Total 0.3 mg/dL (0.2-1.0); Creatine Phosphokinase 60 U/L (39-308); Globulin 3.7 g/dL (2.3-3.5); Glomerular Filtration Rate 78 ml/min (=/>90); Glucose Level 80 mg/dL (74-106); Magnesium 2.3 mg/dL (1.6-2.4); Potassium 3.4 mEq/L (3.5-5.1); Protein, Total 7.6 g/dL (6.4-8.2); Sodium Level 141 mEq/L (136-145); Troponin High Sensitivity 10.1 pg/mL (<58.9)
[2024-02-06 12:11] LABS: AST/SGOT < 10 U/L (15-37)
--- NOTE | 2024-02-06 12:11 | RAD REPORT ---
EXAM DESCRIPTION: Sri Single View02/06/2024 12:03 pm CLINICAL HISTORY: Numbness COMPARISON: December 2023 FINDINGS: The lungs appear clear of acute infiltrate. The heart is normal size IMPRESSION: No acute abnormalities displayed
[2024-02-06 12:12] LABS: Bilirubin Direct < 0.2 mg/dL (0-0.2); Bilirubin Indirect, Calculated 0.1 mg/dL (0.2-0.8)
[2024-02-06] MEDS ORDERED: POTASSIUM 25 MEQ EFFERV TAB ONE (12:24)
[2024-02-06] MEDS ORDERED: FOLIC ACID 5 MG/ML VIAL ONE (12:25)
--- NOTE | 2024-02-06 12:27 | EDPHYS ---
Physician Documentation [facility] Name: Raffi Rodriguez Age: 63 yrs Sex: Male : 1960 Arrival Date: 02/06/2024 Time: 11:17 Bed 20 Private MD: ED Physician Ken Arvizu HPI: 02/05 11:30 This 63 yrs old Male presents to ER via Ambulatory with complaints of S/S of Possible cp Stroke. 11:30 The patient presents to the emergency department with weakness of the right upper cp extremity, impaired coordination, right lower extremity. 11:30 Onset: The symptoms/episode began/occurred this morning, about 0830 symptoms started cp with numbness to right side of body. numbness now resolved but having weakness of right arm and right leg. Patient's baseline: Neuro: alert and fully oriented, Motor: no deficits, Ambulation: walks without assistance, Speech: normal. 11:30 Current symptoms: right arm and right leg weakness and numbness. cp Historical: - Allergies: 12:13 Codeine; ll1 - PMHx: 12:13 SMALL BOWEL OBSTRUCTION; Hypertensive disorder; Hypercholesterolemia; ll1 - PSHx: 12:13 renal artery scope; ll1 - Immunization history:: Adult Immunizations up to date. - Infectious Disease History:: Denies. - Social history:: Smoking status: Patient denies any tobacco usage or history of. ROS: 11:33 Neuro: Positive for numbness, weakness, of the right arm and right leg, Negative for cp altered mental status, headache, 11:33 Constitutional: Negative for body aches, chills, fever, poor PO intake, cp 11:33 Cardiovascular: Negative for chest pain, edema, palpitations, 11:33 Respiratory: Negative for cough, shortness of breath, wheezing, 11:33 Eyes: Negative for injury, pain, redness, and discharge, cp 11:33 ENT: Negative for drainage from ear(s), ear pain, sore throat, difficulty swallowing, difficulty handling secretions, 11:33 Abdomen/GI: Negative for abdominal pain, vomiting, diarrhea, constipation, 11:33 All other systems are negative, Exam: 11:35 Constitutional: The patient appears in no acute distress, alert, awake, cp non-diaphoretic, non-toxic, well developed, well nourished, 11:35 Head/Face: Normocephalic, atraumatic. cp 11:35 Eyes: Periorbital structures: appear normal, Pupils: equal, round, and reactive to light and accomodation, Extraocular movements: intact throughout, Conjunctiva: normal, no exudate, no injection, Sclera: no appreciated abnormality, Lids and lashes: appear normal, bilaterally, 11:35 ENT: External ear(s): are unremarkable, Nose: is normal, Mouth: Lips: moist, Oral mucosa: pink and intact, moist, Posterior pharynx: Airway: no evidence of obstruction, patent, 11:35 Neck: ROM/movement: is normal, is supple, without pain, no range of motions limitations, 11:35 Chest/axilla: Inspection: normal, 11:35 Cardiovascular: Rate: normal, Rhythm: regular, Edema: is not appreciated, JVD: is not appreciated, 11:35 Respiratory: the patient does not display signs of respiratory distress, Respirations: normal, no use of accessory muscles, no retractions, labored breathing, is not present, Breath sounds: are clear throughout, no decreased breath sounds, no stridor, no wheezing, 11:35 Abdomen/GI: Inspection: abdomen appears normal, Palpation: abdomen is soft and non-tender, in all quadrants, 11:35 Back: pain, is absent, ROM is normal, 11:35 Neuro: Orientation: to person, place \T\ time. Mentation: is normal, Cerebellar function: Romberg testing is abnormal, right arm and right leg, Motor: moves all fours, Sensation: numbness, that is mild, of the right arm and right leg, Vital Signs: 11:45 BP 164 / 78; Pulse 62; Pulse Ox 95% on R/A; Pain 0/10; ll1 11:57 Resp 17; Weight 96.9 kg; ss 12:00 BP 152 / 95; Pulse 68; Resp 17; Temp 98; Pulse Ox 95% on R/A; ll1 13:00 BP 170 / 83; Pulse 68; Resp 17; Pulse Ox 96% on R/A; Pain 0/10; ll1 13:45 BP 172 / 82; Pulse 62; Resp 16; Pulse Ox 97% ; ll1 14:14 BP 149 / 82; Pulse 65; Resp 16; Pulse Ox 95% on R/A; Pain 0/10; ll1 11:45 Pain Scale: Adult ll1 13:00 Pain Scale: Adult ll1 14:14 Pain Scale: Adult ll1 NIH Stroke Scale Scores: 11:17 NIHSS Score: 3 ll1 11:45 NIHSS Score: 3 cp 12:17 NIHSS Score: 3 ll1 MDM: 11:30 Patient medically screened. 12:30 Data reviewed: vital signs, nurses notes, lab test result(s), EKG, radiologic studies, cp CT scan, plain films, I have discussed the patient's presentation/case with the attending Emergency Department Physician; and as a result, I will admit patient. 12:30 Management of patient was discussed with the following: Hospitalist: Manny Childress NP cp will admit after discussion. I considered the following discharge prescriptions or medication management in the emergency department Medications were administered in the Emergency Department. See MAR. Independent interpretation of the following test(s) in the Emergency Department EKG: See my EKG interpretation above. Care significantly affected by the following chronic conditions: Hypertension. Counseling: I had a detailed discussion with the patient and/or guardian regarding the historical points, exam findings, and any diagnostic results supporting the discharge/admit diagnosis, the presence of at least one elevated blood pressure reading (>120/80) during this emergency department visit, lab results, radiology results, the need for further work-up and treatment in the hospital. 13:44 ED course: patient reports improvement in numbness that has almost resolved, weakness cp improved after TNK. 02/05 11:30 Order name: Basic Metabolic Panel; Complete Time: 12:15 cp 02/05 12:15 Interpretation: Normal except: K 3.4; CL 111; BUN 22; GFR 78. cp 02/05 11:30 Order name: CBC with Diff; Complete Time: 11:59 cp 02/05 11:30 Order name: Hepatic Function; Complete Time: 12:15 cp 02/05 11:30 Order name: High Sensitivity Troponin; Complete Time: 12:15 cp 02/05 11:30 Order name: Magnesium; Complete Time: 12:15 cp 02/05 11:30 Order name: Protime (+inr); Complete Time: 12:15 cp 02/05 11:30 Order name: Ptt, Activated; Complete Time: 12:15 cp 02/05 11:30 Order name: CK; Complete Time: 12:15 cp 02/05 12:48 Order name: Glucose, Ancillary Testing; Complete Time: 12:51 EDMS 02/05 12:51 Interpretation: Reviewed. cp 02/05 13:38 Order name: Basic Metabolic Panel EDMS 02/05 13:38 Order name: Basic Metabolic Panel EDMS 02/05 13:38 Order name: Basic Metabolic Panel EDMS 02/05 13:38 Order name: Basic Metabolic Panel EDMS 02/05 13:38 Order name: CBC with Automated Diff EDMS 02/05 13:38 Order name: CBC with Automated Diff EDMS 02/05 13:38 Order name: CBC with Automated Diff EDMS 02/05 13:38 Order name: CBC with Automated Diff EDMS 02/05 13:38 Order name: Lipid Profile EDMS 02/05 13:38 Order name: Lipid Profile EDMS 02/05 13:38 Order name: T4,Total EDMS 02/05 13:38 Order name: T4,Total EDMS 02/05 13:38 Order name: Thyroid Stimulating Hormone EDMS 02/05 13:38 Order name: Thyroid Stimulating Hormone EDMS 02/05 11:30 Order name: CT Neck Angio; Complete Time: 12:15 cp 02/05 11:30 Order name: CT Stroke Brain w/o Contrast; Complete Time: 11:59 cp 02/05 11:30 Order name: Stroke CXR 1 View; Complete Time: 12:15 cp 02/05 11:37 Order name: Head angio; Complete Time: 12:15 EDMS 02/05 13:33 Order name: Brain Wo Cont EDMS 02/05 13:38 Order name: Head Brain Wo Cont EDMS 02/05 13:38 Order name: Echo with Doppler EDMS 02/05 13:38 Order name: IRF Screen EDMS 02/05 13:38 Order name: Physical Therapy Consult EDMS 02/05 13:38 Order name: Speech Therapy Consult EDMS 02/05 11:30 Order name: Accucheck; Complete Time: 12:38 cp 02/05 11:30 Order name: Cardiac monitoring; Complete Time: 12:07 cp 02/05 11:30 Order name: EKG - Nurse/Tech; Complete Time: 12:07 cp 02/05 11:30 Order name: IV Saline Lock; Complete Time: 11:34 cp 02/05 11:30 Order name: Labs collected and sent; Complete Time: 11:34 cp 02/05 11:30 Order name: NPO; Complete Time: 11:33 cp 02/05 11:30 Order name: O2 Per Protocol; Complete Time: 11:33 cp 02/05 11:30 Order name: O2 Sat Monitoring; Complete Time: 11:33 cp 02/05 11:30 Order name: Stroke Swallow Screen; Complete Time: 12:21 cp Administered Medications: 12:06 Drug: TNK FOR STROKE - Tenecteplase IV (Administer 10 ml NS flush BEFORE and ll1 AFTER tenecteplase) 0.25 mg/kg IV at per protocol once; MAX DOSE 25 mg, IVP over 5 seconds {Co-Signature: samara (Fatimah Peraza RN).} Route: IV; Rate: per protocol; Site: right antecubital; 12:30 Follow up: Response: No adverse reaction; IV Status: Completed infusion; IV Intake: ll1 4.8ml 12:23 CANCELLED (Physician Discretion): [id number] mg PO once la1 12:30 Drug: foLIC Acid IVPB 1 mg IVPB once Route: IVPB; Site: right antecubital; ll1 12:38 Follow up: Response: No adverse reaction; IV Status: Completed infusion; IV Intake: ll1 0.2ml 12:30 Drug: Potassium PO Effervescent Tablet 25 mEq PO once; dissolve in 4 ounces of water or ll1 juice Route: PO; 14:14 Follow up: Response: No adverse reaction ll1 Point of Care Testing: Blood Glucose: 14:13 Blood Glucose: 69 mg/dL; ll1 Ranges: Critical Glucose Levels:Adult <50 mg/dl or >400 mg/dl <40 mg/dl or >180 mg/dl Disposition Summary: 02/06/24 12:27 Hospitalization Ordered Notes: Hospitalization Status: Inpatient Admission cp Provider: Albert Brooks cp Location: Intensive Care Unit cp Condition: Stable cp Problem: new cp Symptoms: have improved cp Bed/Room Type: Standard cp Room Assignment: 4-(02/06/24 13:47) eb Diagnosis - Weakness cp - Paresthesia of skin cp Forms: - Medication Reconciliation Form cp - SBAR form cp - Leadership Thank You Letter cp NIH Stroke Scale - NIH Stroke Score Date: 02/06/2024 Time: 11:17 Total Score = 3 10. Dysarthria (speech clarity - read or repeat words) - 0(Normal) 11. Extinction and Inattention (visual/tactile/auditory/spatial/personal) - 0(No abnormality) 1a. Level of Consciousness (LOC) - 0(Alert) 1b. Level of Consciousness (LOC) (Month \T\ Age) - 0(Both) 1c. LOC Commands (Open \T\ Closes Eyes/Frame Stylist) - 0(Both) 2. Best Gaze (Lateral Gaze Paresis) - 0(Normal) 3. Visual Field Loss - 0(No visual loss) 4. Facial Palsy - 0(Normal) 5a. Left Arm: Motor (10-second hold) - 0(No drift) 5b. Right Arm: Motor (10-second hold) - 1(Drift) 6a. Left Leg: Motor (5-second hold - always test supine) - 0(No drift) 6b. Right Leg: Motor (5-second hold - always test supine) - 1(Drift) 7. Limb Ataxia (finger/nose \T\ heel/jean-baptiste - test with eyes open) - 1(Present in one limb) 8. Sensory Loss (pinprick arms/legs/face) - 0(Normal) 9. Best Language: Aphasia (description/naming/reading) - 0(No aphasia) Initials: ll1 NIH Stroke Scale - NIH Stroke Score Date: 02/06/2024 Time: 11:45 Total Score = 3 10. Dysarthria (speech clarity - read or repeat words) - 0(Normal) 11. Extinction and Inattention (visual/tactile/auditory/spatial/personal) - 0(No abnormality) 1a. Level of Consciousness (LOC) - 0(Alert) 1b. Level of Consciousness (LOC) (Month \T\ Age) - 0(Both) 1c. LOC Commands (Open \T\ Closes Eyes/Frame Stylist) - 0(Both) 2. Best Gaze (Lateral Gaze Paresis) - 0(Normal) 3. Visual Field Loss - 0(No visual loss) 4. Facial Palsy - 0(Normal) 5a. Left Arm: Motor (10-second hold) - 0(No drift) 5b. Right Arm: Motor (10-second hold) - 0(No drift) 6a. Left Leg: Motor (5-second hold - always test supine) - 0(No drift) 6b. Right Leg: Motor (5-second hold - always test supine) - 0(No drift) 7. Limb Ataxia (finger/nose \T\ heel/jean-baptiste - test with eyes open) - 2(Present in two limbs) 8. Sensory Loss (pinprick arms/legs/face) - 1(Mild to moderate loss) 9. Best Language: Aphasia (description/naming/reading) - 0(No aphasia) Initials: cp NIH Stroke Scale - NIH Stroke Score Date: 02/06/2024 Time: 12:17 Total Score = 3 10. Dysarthria (speech clarity - read or repeat words) - 0(Normal) 11. Extinction and Inattention (visual/tactile/auditory/spatial/personal) - 0(No abnormality) 1a. Level of Consciousness (LOC) - 0(Alert) 1b. Level of Consciousness (LOC) (Month \T\ Age) - 0(Both) 1c. LOC Commands (Open \T\ Closes Eyes/Frame Stylist) - 0(Both) 2. Best Gaze (Lateral Gaze Paresis) - 0(Normal) 3. Visual Field Loss - 0(No visual loss) 4. Facial Palsy - 0(Normal) 5a. Left Arm: Motor (10-second hold) - 0(No drift) 5b. Right Arm: Motor (10-second hold) - 1(Drift) 6a. Left Leg: Motor (5-second hold - always test supine) - 0(No drift) 6b. Right Leg: Motor (5-second hold - always test supine) - 1(Drift) 7. Limb Ataxia (finger/nose \T\ heel/jean-baptiste - test with eyes open) - 1(Present in one limb) 8. Sensory Loss (pinprick arms/legs/face) - 0(Normal) 9. Best Language: Aphasia (description/naming/reading) - 0(No aphasia) Initials: ll1 Signatures: Dispatcher [employer] EDMS Anirudh Mathew PA PA cp Botello, Elizabeth eb Lewis, Lynsay, RN RN ll1 Manny Childress [employer]-Cla1 Fatimah Peraza RN ss Corrections: (The following items were deleted from the chart) 11:30 11:30 BASIC METABOLIC PANEL+C.LAB.BRZ ordered. EDMS EDMS 11:30 11:30 CBC+H.LAB.BRZ ordered. EDMS EDMS : 11:30 HEPATIC FUNCTION+C.LAB.BRZ ordered. EDMS EDMS 11:30 Troponin High Sensitivity+C.LAB.BRZ ordered. EDMS EDMS : 11:30 MAGNESIUM+C.LAB.BRZ ordered. EDMS EDMS : 11:30 PROTIME (+INR)+COAG.LAB.BRZ ordered. EDMS EDMS 11:30 PTT, ACTIVATED+COAG.LAB.BRZ ordered. EDMS EDMS 11:30 CREATINE PHOSPHOKINASE+C.LAB.BRZ ordered. EDMS EDMS : 11:30 Neck Angio+CT.RAD.BRZ ordered. EDMS EDMS 11:31 CT-STROKE BRAIN W/O CONTRAST+CT.RAD.BRZ ordered. EDMS EDMS : 11:31 Chest Single View+RAD.RAD.BRZ ordered. EDMS EDMS 12:23 12:07 Aspirin PO 162 mg PO once ordered. cp la1 13:47 12:27 cp eb
--- NOTE | 2024-02-06 12:27 | ER ---
Nurse's Notes [facility] Name: Raffi Rodriguez Age: 63 yrs Sex: Male : 1960 Arrival Date: 02/06/2024 Time: 11:17 Bed 20 Private MD: Diagnosis: Weakness;Paresthesia of skin Presentation: 02/05 11:25 Chief complaint: Patient states: pt was cleaning outside and clearing trees and his as6 right arm went numb at 0830 and is now c/o right arm weakness. Coronavirus screen: At this time, the client does not indicate any symptoms associated with coronavirus-19. Ebola Screen: No symptoms or risks identified at this time. Risk Assessment: Do you want to hurt yourself or someone else? Patient reports no desire to harm self or others. Onset of symptoms was February 06, 2024 at 08:30. 11:25 Method Of Arrival: Ambulatory as6 11:25 Acuity: NICK 2 as6 12:36 An acute neurological deficit is present. Initial Sepsis Screen: Does the patient meet ll1 any 2 criteria? No. Patient's initial sepsis screen is negative. Does the patient have a suspected source of infection? No. Patient's initial sepsis screen is negative. 14:13 Pre-hospital glucose is not applicable to this patient. ll1 Triage Assessment: 14:13 The onset of the patients symptoms was February 06, 2024 at 08:30. General: Appears in no ll1 apparent distress. Stroke Activation: Symptom onset < 3 hours Physician: ED Attending; Name: Alison Arvizu; Notified At: 12:00; Arrived At: Physician: Mid-Level Provider; Name: Martin Mathew; Notified At: 12:00; Arrived At: Physician: [not used]; Name: ; Notified At: ; Arrived At: Physician: [not used]; Name: ; Notified At: ; Arrived At: Physician: [not used]; Name: ; Notified At: ; Arrived At: Historical: - Allergies: 12:13 Codeine; ll1 - PMHx: 12:13 SMALL BOWEL OBSTRUCTION; Hypertensive disorder; Hypercholesterolemia; ll1 - PSHx: 12:13 renal artery scope; ll1 - Immunization history:: Adult Immunizations up to date. - Infectious Disease History:: Denies. - Social history:: Smoking status: Patient denies any tobacco usage or history of. Screenin:17 [facility] ED Fall Risk Assessment (Adult) History of falling in the last 3 months, ll1 including since admission No falls in past 3 months (0 pts) Confusion or Disorientation No (0 pts) Intoxicated or Sedated No (0 pts) Impaired Gait Yes (1 pt) Mobility Assist Device Used No (0 pt) Altered Elimination No (0 pt) Score/Fall Risk Level 0 - 2 = Low Risk Maintained a safe environment, Hourly rounding (assess needs \T\ fall precautionary measures) done. Abuse screen: Denies threats or abuse. Nutritional screening: No deficits noted. Tuberculosis screening: No symptoms or risk factors identified. Assessment: 12:17 VAN Scoring: Arm Drift: Patients demonstrates NO arm weakness. Patient is VAN Negative. ll1 Liana Swallow Protocol Exclusion Criteria: Brief Cognitive Screen What is your name? Normal, Where are you right now? Normal, What year is it? Normal. Oral Mechanism Examination Facial Symmetry: Motion: Lip Closure:. General: Appears in no apparent distress. Behavior is calm, cooperative, appropriate for age. Pain: Denies pain. Neuro: Reports weakness in right arm. 12:35 Liana Swallow Protocol 3 oz Water Swallow Challenge: Pt able to drink all water without ll1 stopping, coughing, choking or throat clearing: Yes Result: PASS MD Notified: Anirudh SWANN. TNKase (Tenecteplase) Screening: Indications: Treatment will start within 4.5 hours onset of symptoms: Yes. 13:00 Reassessment: No changes from previously documented assessment. Patient and/or family ll1 updated on plan of care and expected duration. Pain level reassessed. 14:00 Reassessment: No changes from previously documented assessment. Patient and/or family ll1 updated on plan of care and expected duration. Pain level reassessed. Patient is alert, oriented x 3, equal unlabored respirations, skin warm/dry/pink. Vital Signs: 11:45 BP 164 / 78; Pulse 62; Pulse Ox 95% on R/A; Pain 0/10; ll1 11:57 Resp 17; Weight 96.9 kg; ss 12:00 BP 152 / 95; Pulse 68; Resp 17; Temp 98; Pulse Ox 95% on R/A; ll1 13:00 BP 170 / 83; Pulse 68; Resp 17; Pulse Ox 96% on R/A; Pain 0/10; ll1 13:45 BP 172 / 82; Pulse 62; Resp 16; Pulse Ox 97% ; ll1 14:14 BP 149 / 82; Pulse 65; Resp 16; Pulse Ox 95% on R/A; Pain 0/10; ll1 11:45 Pain Scale: Adult ll1 13:00 Pain Scale: Adult ll1 14:14 Pain Scale: Adult ll1 NIH Stroke Scale Scores: 11:17 NIHSS Score: 3 ll1 11:45 NIHSS Score: 3 cp 12:17 NIHSS Score: 3 ll1 ED Course: 11:15 Patient has correct armband on for positive identification. Provided Education on: ER ll1 procedures and process. 11:22 Patient arrived in ED. mg5 11:22 Anirudh Mathew PA is PHCP. cp 11:22 Korey Brewster MD is Attending Physician. cp 11:28 Triage completed. as6 11:31 Ken Arvizu MD is Attending Physician. cp 11:33 Mat Torres, ZAIN is Primary Nurse. ll1 11:37 CT Stroke Brain w/o Contrast In Process Unspecified. EDMS 11:40 Inserted saline lock: 22 gauge in right antecubital area, using aseptic technique. ll1 Blood collected. IV is patent, with fluids infusing freely, with good blood return, Flushed right antecubital saline lock. 11:46 CT Neck Angio In Process Unspecified. EDMS 11:46 Head angio In Process Unspecified. EDMS 12:05 Stroke CXR 1 View In Process Unspecified. EDMS 12:14 Missed attempt(s): 20 gauge in left hand. Bleeding controlled, band aid applied, ll1 catheter tip intact. 12:26 Albert Brooks is Hospitalizing Provider. cp 12:37 Inserted saline lock: 20 gauge in left antecubital area, using aseptic technique. IV is ll1 patent, with fluids infusing freely, with good blood return, Flushed left antecubital saline lock with 5 ml normal saline. 14:12 No provider procedures requiring assistance completed. Patient admitted, IV remains in ll1 place. 14:13 Arm band placed on right wrist. ll1 Administered Medications: 12:06 Drug: TNK FOR STROKE - Tenecteplase IV (Administer 10 ml NS flush BEFORE and ll1 AFTER tenecteplase) 0.25 mg/kg IV at per protocol once; MAX DOSE 25 mg, IVP over 5 seconds {Co-Signature: ss (Fatimah Peraza RN).} Route: IV; Rate: per protocol; Site: right antecubital; 12:30 Follow up: Response: No adverse reaction; IV Status: Completed infusion; IV Intake: ll1 4.8ml 12:23 CANCELLED (Physician Discretion): [id number] mg PO once la1 12:30 Drug: foLIC Acid IVPB 1 mg IVPB once Route: IVPB; Site: right antecubital; ll1 12:38 Follow up: Response: No adverse reaction; IV Status: Completed infusion; IV Intake: ll1 0.2ml 12:30 Drug: Potassium PO Effervescent Tablet 25 mEq PO once; dissolve in 4 ounces of water or ll1 juice Route: PO; 14:14 Follow up: Response: No adverse reaction ll1 Medication: 12:38 VIS not applicable for this client. ll1 Point of Care Testing: Blood Glucose: 14:13 Blood Glucose: 69 mg/dL; ll1 Ranges: Intake: 12:30 IV: 5ml; Total: 5ml. ll1 12:38 IV: 0ml; Total: 5ml. ll1 Outcome: 12:27 Decision to Hospitalize by Provider. cp 14:12 Admitted to ICU accompanied by nurse, via stretcher, room ICU 4, with chart, Report ll1 called to Dakota Berman RN 14:12 Condition: stable 14:12 Instructed on the need for admit, 14:24 Patient left the ED. NIH Stroke Scale - NIH Stroke Score Date: 02/06/2024 Time: 11:17 Total Score = 3 10. Dysarthria (speech clarity - read or repeat words) - 0(Normal) 11. Extinction and Inattention (visual/tactile/auditory/spatial/personal) - 0(No abnormality) 1a. Level of Consciousness (LOC) - 0(Alert) 1b. Level of Consciousness (LOC) (Month \T\ Age) - 0(Both) 1c. LOC Commands (Open \T\ Closes Eyes/Window Shade Ring Coverer) - 0(Both) 2. Best Gaze (Lateral Gaze Paresis) - 0(Normal) 3. Visual Field Loss - 0(No visual loss) 4. Facial Palsy - 0(Normal) 5a. Left Arm: Motor (10-second hold) - 0(No drift) 5b. Right Arm: Motor (10-second hold) - 1(Drift) 6a. Left Leg: Motor (5-second hold - always test supine) - 0(No drift) 6b. Right Leg: Motor (5-second hold - always test supine) - 1(Drift) 7. Limb Ataxia (finger/nose \T\ heel/jean-baptiste - test with eyes open) - 1(Present in one limb) 8. Sensory Loss (pinprick arms/legs/face) - 0(Normal) 9. Best Language: Aphasia (description/naming/reading) - 0(No aphasia) Initials: ll1 NIH Stroke Scale - NIH Stroke Score Date: 02/06/2024 Time: 11:45 Total Score = 3 10. Dysarthria (speech clarity - read or repeat words) - 0(Normal) 11. Extinction and Inattention (visual/tactile/auditory/spatial/personal) - 0(No abnormality) 1a. Level of Consciousness (LOC) - 0(Alert) 1b. Level of Consciousness (LOC) (Month \T\ Age) - 0(Both) 1c. LOC Commands (Open \T\ Closes Eyes/Window Shade Ring Coverer) - 0(Both) 2. Best Gaze (Lateral Gaze Paresis) - 0(Normal) 3. Visual Field Loss - 0(No visual loss) 4. Facial Palsy - 0(Normal) 5a. Left Arm: Motor (10-second hold) - 0(No drift) 5b. Right Arm: Motor (10-second hold) - 0(No drift) 6a. Left Leg: Motor (5-second hold - always test supine) - 0(No drift) 6b. Right Leg: Motor (5-second hold - always test supine) - 0(No drift) 7. Limb Ataxia (finger/nose \T\ heel/jean-baptiste - test with eyes open) - 2(Present in two limbs) 8. Sensory Loss (pinprick arms/legs/face) - 1(Mild to moderate loss) 9. Best Language: Aphasia (description/naming/reading) - 0(No aphasia) Initials: cp NIH Stroke Scale - NIH Stroke Score Date: 02/06/2024 Time: 12:17 Total Score = 3 10. Dysarthria (speech clarity - read or repeat words) - 0(Normal) 11. Extinction and Inattention (visual/tactile/auditory/spatial/personal) - 0(No abnormality) 1a. Level of Consciousness (LOC) - 0(Alert) 1b. Level of Consciousness (LOC) (Month \T\ Age) - 0(Both) 1c. LOC Commands (Open \T\ Closes Eyes/Window Shade Ring Coverer) - 0(Both) 2. Best Gaze (Lateral Gaze Paresis) - 0(Normal) 3. Visual Field Loss - 0(No visual loss) 4. Facial Palsy - 0(Normal) 5a. Left Arm: Motor (10-second hold) - 0(No drift) 5b. Right Arm: Motor (10-second hold) - 1(Drift) 6a. Left Leg: Motor (5-second hold - always test supine) - 0(No drift) 6b. Right Leg: Motor (5-second hold - always test supine) - 1(Drift) 7. Limb Ataxia (finger/nose \T\ heel/jean-baptiste - test with eyes open) - 1(Present in one limb) 8. Sensory Loss (pinprick arms/legs/face) - 0(Normal) 9. Best Language: Aphasia (description/naming/reading) - 0(No aphasia) Initials: ll1 Signatures: Dispatcher [employer] Fatimah Lerma, ZAIN RN ss Anirudh Mathew PA PA cp Botello, Elizabeth eb Lewis, Lynsay, RN RN ll1 Benji Baron RN RN as6 [facility]5 Manny Childress [facility] Fatimah Peraza RN ss Corrections: (The following items were deleted from the chart) 13:22 12:00 BP 152 / 95; Pulse 68bpm; Resp 17bpm; Pulse Ox 95% RA; ll1 ll1
[2024-02-06] MEDS ORDERED: ACETAMINOPHEN 500 MG TAB PO PRN (13:36)
[2024-02-06] MEDS ORDERED: HYDRALAZINE HCL 20 MG/ML VIAL IV PRN (13:36)
--- NOTE | 2024-02-06 13:48 | P.HP ---
Certification for Inpatient Patient admitted to: Observation With expected LOS: <2 Midnights Patient will require the following post-hospital care: None Practitioner: I am a practitioner with admitting privileges, knowledge of patient current condition, hospital course, and medical plan of care. Services: Services provided to patient in accordance with Admission requirements found in Title 42 Section 412.3 of the Code of Federal Regulations <FiorManny Hill - Last Filed: 02/06/24 13:43> Patient History Date of Service: 02/06/24 Reason for admission: Right-sided weakness History of Present Illness: 63-year-old male with history of hypertension, hyperlipidemia, axj-xzckazi-allmwbpyl diabetes presents emergency department chief complaint of right-sided weakness. He reports that symptoms began at 830 this morning while cutting trees with a chainsaw. He reports he had right-sided weakness affecting his upper and lower extremity and for that reason came into the hospital. He was evaluated in the emergency department code stroke was called on arrival, he was noted to have an NIH score of 3 with right upper and lower extremity weakness noted. CT head without contrast was performed which showed 10 mm low- density area right frontal lobe adjacent to the right lateral ventricle which could be an area of ischemia secondary to small vessel disease or an old infarct although no acute abnormalities are present. CTA of the head and neck were negative for large vessel occlusion, he does have 35% left internal carotid stenosis. Patient arrived within the window for TNK, case was discussed with neurology by ED provider, TNK was administered at 1206. Currently patient's weakness is improving NIH score is currently 1 with just right upper extremity weakness/drift. Patient has been mated to the ICU for close monitoring after TNK administration. 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, lives in with family - Family History Sister -: Cancer Notes: renal cancer - Social History Smoking Status: Former smoker Alcohol use: Yes CD- Drugs: No Caffeine use: Yes Place of Residence: Home <Manny Childress - Last Filed: 02/06/24 13:43> Date of Service: 02/06/24 <patt petty - Last Filed: 02/06/24 19:21> Allergies codeine Allergy (Verified 12/27/23 12:31) Hives/Vomiting Home Medications: Anastrozole [Arimidex] 1 mg PO EVERY 3RD DAY 02/06/24 Cetirizine HCl [Allergy Relief] 10 mg PO BEDTIME 02/06/24 Fenofibrate [Tricor] 145 mg PO DAILY 02/06/24 Glipizide [Glipizide ER] 10 mg PO DAILY 02/06/24 Losartan/Hydrochlorothiazide [Losartan-Hctz 100-25 mg Tab] 1 each PO DAILY 02/06/24 Sildenafil Citrate [Viagra] 100 mg PO DAILY PRN 02/06/24 Tamsulosin [Flomax] 0.4 mg PO BEDTIME 02/06/24 Verapamil HCl [Verapamil Sr] 360 mg PO DAILY 02/06/24 clomiPHENE citrate [Clomid] 50 mg PO DAILY 02/06/24 Review of Systems 10-point ROS is otherwise unremarkable Neurological: Weakness (Right-sided weakness) <Manny Childress - Last Filed: 02/06/24 13:43> Physical Examination - Physical Exam General: Alert, In no apparent distress, Oriented x3 HEENT: Atraumatic, PERRLA, EOMI Neck: Supple, 2+ carotid pulse no bruit, No LAD Respiratory: Clear to auscultation bilaterally, Normal air movement Cardiovascular: Regular rate/rhythm, Normal S1 S2 Gastrointestinal: Normal bowel sounds, No tenderness Musculoskeletal: No tenderness Integumentary: No rashes Neurological: Normal gait, Normal speech, Normal tone, Normal affect, Other (NIH score 1), Abnormal speech (Strength 4 out of 5 right upper extremity all other extremities 5 out of 5) - Studies Laboratory Data (last 24 hrs) 02/06/24 02/06/24 02/06/24 11:41 11:41 11:41 WBC 7.70 Hgb 14.7 Hct 44.4 Plt Count 172 PT 12.4 INR 1.11 APTT 29.3 Sodium 141 Potassium 3.4 L BUN 22 H Creatinine 1.08 Glucose 80 Magnesium 2.3 Total Bilirubin 0.3 AST < 10 L ALT 27 Alkaline Phosphatase 49 <Manny Childress - Last Filed: 02/06/24 13:43> - Studies Laboratory Data (last 24 hrs) 02/06/24 02/06/24 02/06/24 11:41 11:41 11:41 WBC 7.70 Hgb 14.7 Hct 44.4 Plt Count 172 PT 12.4 INR 1.11 APTT 29.3 Sodium 141 Potassium 3.4 L BUN 22 H Creatinine 1.08 Glucose 80 Magnesium 2.3 Total Bilirubin 0.3 AST < 10 L ALT 27 Alkaline Phosphatase 49 <patt petty - Last Filed: 02/06/24 19:21> Assessment and Plan - Plan Assessment: Right-sided weakness suspect ischemic CVA versus TIA S/P TNK Hypertension Hyperlipidemia Diabetes mellitus type 2gnd-rmhgpec-kjrmqrwgt BPH Plan: Right-sided weakness suspect ischemic CVA versus TIA S/P TNK CT shows 10 mm right-sided area of ischemia secondary to small vessel disease versus old infarct Left internal carotid with 35% stenosis No large vessel occlusion or other acute findings on CTs MRI brain without contrast ordered Will need to monitor in ICU for 24 hours after receiving TNK After 24 hours from TNK will initiate aspirin, Plavix in addition to the statin NIH score currently 1 with right upper extremity weakness Maintain BP less than 185/110 given TNK administration Neurology consultation in place, echocardiogram also ordered Hypertension Hyperlipidemia Resume home medications Diabetes mellitus type 2cno-bcaolqs-kddmuaeqs ACHS Accu-Chek, sliding scale insulin BPH Continue home medications when verified DVT PPX: SCD-avoid heparin/Lovenox/aspirin/Plavix for 24 hours after TNK Code status: Full Discharge Plan: Home Plan to discharge in: 24 Hours - Advance Directives Does patient have a Living Will: No Does patient have a Durable POA for Healthcare: No - Code Status/Comfort Care Code Status Assessed: Yes (Full) Critical Care: No Time Spent Managing Pts Care (In Minutes): 70 <Manny Childress - Last Filed: 02/06/24 13:43> - Plan Patient seen and examined. Plan of care discussed with Manny Childress. Patient presented with right-sided weakness and numbness after working in the heat for several hours. He attributes his symptoms to heat exhaustion/heat stroke. Stroke protocol initiated in the ED, status post TNKase. MRI of the brain shows no acute disease. Patient's neurology symptoms resolved. NIHSS is 0. Repeat head CT within 24 hours Avoid antiplatelet until then. Neurochecks. Check lipid profile. <patt petty - Last Filed: 02/06/24 19:21>
[2024-02-06 14:57] VITALS: BMI 29.6
--- NOTE | 2024-02-06 15:57 | RAD REPORT ---
EXAM DESCRIPTION: MRI - Brain Wo Cont - 02/06/2024 3:41 pm CLINICAL HISTORY: Suspected CVA, Right sided weakness S/P TNK COMPARISON: No comparisons TECHNIQUE: Sagittal T1-weighted images were obtained along with PD/heavily T2-weighted and T2-FLAIR images. Axial DWI and ADC mapping sequences were also obtained along with coronal heavily T2-weighted images were obtained. FINDINGS: No intracranial hemorrhage, mass or acute infarction. There is no edema or shift of midlin e structures. No extra-axial fluid collections. Signal voids are seen as a normal finding in the sherri r intracranial vessels. Mild chronic small vessel ischemic changes. Small remote appearing deep white matter/lacunar infarct near the right frontal horn of the right lateral ventricle. Mastoid air cells and paranasal sinuses are clear. IMPRESSION: No acute intracranial abnormality. Specifically, no evidence of acute infarct. Mild chronometer tester rosalino small vessel ischemic changes. Small remote right frontal deep white matter infarct.
[2024-02-06] MEDS: ATORVASTATIN 40 MG TAB PO SCH (20:09)
[2024-02-06] MEDS: TAMSULOSIN 0.4 MG SR CAP PO SCH (20:09)
[2024-02-06] MEDS: DIPHENHYDRAMINE 25 MG TAB/CAP PO PRN (21:51)
[2024-02-07 04:10] VITALS: O2SAT 95
[2024-02-07 05:09] LABS: Absolute Basophils 0.1 K/uL (0-0.5); Absolute Eosinophils 0.2 K/uL (0-0.5); Absolute Lymphocytes (CBC) 1.9 K/uL (0.7-4.9); Absolute Monocytes 0.6 K/uL (0.1-1.3); Absolute Neutrophil 3.7 K/uL (1.8-8.0); Basophils % 1.1 % (0-1.3); Eosinophils % 3.8 % (0-4.4); Hematocrit 42.2 % (39.6-49.0); Hemoglobin 14.2 g/dL (13.6-17.9); Lymphocytes % 29.6 % (15.3-44.8); MCH 30.1 pg (27.0-35.0); MCHC 33.6 g/dL (32.0-36.0); MCV 89.7 fL (80-100); MPV 8.6 fL (7.6-11.3); Monocytes % 9.4 % (3.3-12.3); Neutrophils % 56.1 % (41.7-73.7); Nucleated Red Blood Cells % 0.1 % (0-0); Platelets 165 thou/uL (152-406); Red Cell Distribution Width 14.3 % (12.1-15.2)
[2024-02-07 05:13] LABS: Anion Gap 11.9 mEq/L (5.0-15.0); Potassium 3.9 mEq/L (3.5-5.1); T4,Total 7.3 ug/dL (4.5-12.1); Thyroid Stimulating Hormone 1.24 uIU/mL (0.358-3.740)
[2024-02-07] MEDS: FOLIC ACID 1 MG TABLET PO SCH (09:34)
[2024-02-07] MEDS: FENOFIBRATE 160 MG TAB PO SCH (09:35)
--- NOTE | 2024-02-07 12:27 | RAD REPORT ---
EXAM DESCRIPTION: CT - Head Brain Wo Cont - 02/07/2024 12:19 pm CLINICAL HISTORY: R/O bleed s/p tnk COMPARISON: Head angio dated 02/06/2024; Ct Stroke Brain Wo Cont dated 02/06/2024; Brain Wo Cont dated 02/06/2024 TECHNIQUE: All CT scans are performed using dose optimization technique as appropriate and may inclu de automated exposure control or mA/KV adjustment according to patient size. FINDINGS: No intracranial hemorrhage, hydrocephalus or extra-axial fluid collection.9 mm area dimini shed density anterior right periventricular white matter is unchanged.No areas of brain edema or evid ence of midline shift. The paranasal sinuses and mastoids are clear. The calvarium is intact. IMPRESSION: No acute intracranial abnormality.
--- NOTE | 2024-02-07 12:43 | EKG ---
Test Date: 2024-02-06 Test Time: 11:50:33 Recycling Tech: LML MEASUREMENT RESULTS: Intervals: Rate: 73 [place]: 172 QRSD: 84 QT: 414 QTc: 456 [place]: P: 83 [place]: 172 QRS: 65 T: 65 INTERPRETIVE STATEMENTS: Normal sinus rhythm Normal ECG Compared to ECG 12/27/2023 12:48:26 ST (T wave) deviation no longer present Electronically Signed On 02-07-24 12:41:47 CDT by Jayce Garay
[2024-02-07 13:58] VITALS: BP 175/79; TEMP 97.5
--- NOTE | 2024-02-07 13:59 | P.DS ---
Admission Date: 02/06/24 Discharge Date: 02/07/24 Disposition: ROUTINE DISCHARGE Discharge Condition: GOOD Reason for Admission: Right-sided weakness Brief History of Present Illness: 63-year-old male with history of hypertension, hyperlipidemia, tiz-ssyabcc-tdcsopfnz diabetes presents emergency department chief complaint of right-sided weakness. He reports that symptoms began at 830 this morning while cutting trees with a chainsaw. He reports he had right-sided weakness affecting his upper and lower extremity and for that reason came into the hospital. He was evaluated in the emergency department code stroke was called on arrival, he was noted to have an NIH score of 3 with right upper and lower extremity weakness noted. CT head without contrast was performed which showed 10 mm low- density area right frontal lobe adjacent to the right lateral ventricle which could be an area of ischemia secondary to small vessel disease or an old infarct although no acute abnormalities are present. CTA of the head and neck were ne gative for large vessel occlusion, he does have 35% left internal carotid stenosis. Patient arrived within the window for TNK, case was discussed with neurology by ED provider, TNK was administered at 1206. Currently patient's weakness is improving NIH score is currently 1 with just right upper extremity weakness/drift. Patient has been mated to the ICU for close monitoring after TNK administration. Hospital Course: Assessment: Right-sided weakness suspect ischemic CVA versus TIA S/P TNK Hypertension Hyperlipidemia Diabetes mellitus type 1spm-qivhbws-ofbidzvkj BPH 63-year-old male with history of hypertension, hyperlipidemia, uai-hlhwhds-kgxhbpqwc diabetes presents emergency department chief complaint of right-sided weakness. He reports that symptoms began at 830 on 02/05 while cutting trees with a chainsaw. He reports he had right-sided weakness affecting his upper and lower extremity and for that reason came into the hospital. He was evaluated in the emergency department code stroke was called on arrival, he was noted to have an NIH score of 3 with right upper and lower extremity weakness noted. CT head without contrast was performed which showed 10 mm low- density area right frontal lobe adjacent to the right lateral ventricle which could be an area of ischemia secondary to small vessel disease or an old infarct although no acute abnormalities are present. CTA of the head and neck were negative for large vessel occlusion, he does have 35% left internal carotid stenosis. Patient arrived within the window for TNK, case was discussed with neurology by ED provider, TNK was administered at 1206 on 02/05. Patient was admitted to the hospital, MRI was obtained which showed No acute intracranial abnormality. Specifically, no evidence of acute infarct. Mild chronic small vessel ischemic changes. Small remote right frontal deep white matter infarct. Patient's symptoms have improved his NIH score is currently 0 with no residual deficit noted. Suspect TIA at this point in time. Vital Signs/Physical Exam: Temp Pulse Resp BP Pulse Ox 97.5 F 82 16 175/79 H 95 02/07/24 08:00 02/07/24 12:00 02/07/24 12:00 02/07/24 12:00 02/07/24 12:00 General: Alert, In no apparent distress, Oriented x3 HEENT: Atraumatic, PERRLA Neck: Supple, JVD not distended Respiratory: Clear to auscultation bilaterally, Normal air movement Cardiovascular: Regular rate/rhythm, Normal S1 S2 Gastrointestinal: Normal bowel sounds, No tenderness Musculoskeletal: No tenderness Integumentary: No rashes Neurological: Normal speech, Normal tone, Normal affect, Other (NIH 0) Lymphatics: No axilla or inguinal lymphadenopathy Laboratory Data at Discharge: WBC 6.50 thou/uL (4.3-10.9) 02/07/24 04:32 Hgb 14.2 g/dL (13.6-17.9) 02/07/24 04:32 Hct 42.2 % (39.6-49.0) 02/07/24 04:32 Plt Count 165 thou/uL (152-406) 02/07/24 04:32 PT 12.4 SECONDS (9.4-12.5) 02/06/24 11:41 INR 1.11 02/06/24 11:41 APTT 29.3 SECONDS (24.3-36.9) 02/06/24 11:41 Sodium 143 mEq/L (136-145) 02/07/24 04:32 Potassium 3.9 mEq/L (3.5-5.1) D 02/07/24 04:32 BUN 19 mg/dL (7-18) H 02/07/24 04:32 Creatinine 1.04 mg/dL (0.70-1.30) 02/07/24 04:32 Glucose 107 mg/dL (74-106) H 02/07/24 04:32 Magnesium 2.3 mg/dL (1.6-2.4) 02/06/24 11:41 Total Bilirubin 0.3 mg/dL (0.2-1.0) 02/06/24 11:41 AST < 10 U/L (15-37) L 02/06/24 11:41 ALT 27 U/L (16-61) 02/06/24 11:41 Alkaline Phosphatase 49 U/L (45-117) 02/06/24 11:41 Triglycerides 172 mg/dL (<150) H 02/07/24 04:32 Cholesterol 124 mg/dL (<200) 02/07/24 04:32 HDL Cholesterol 25 mg/dL (40-60) L 02/07/24 04:32 Cholesterol/HDL Ratio 4.96 02/07/24 04:32 Home Medications: Anastrozole [Arimidex*] 1 mg PO EVERY 3RD DAY 02/06/24 Cetirizine HCl [Allergy Relief] 10 mg PO BEDTIME 02/06/24 Fenofibrate [Tricor*] 145 mg PO DAILY 02/06/24 Glipizide [Glipizide ER] 10 mg PO DAILY 02/06/24 Losartan/Hydrochlorothiazide [Losartan-Hctz 100-25 mg Tab] 1 each PO DAILY 02/06/24 Sildenafil Citrate [Viagra] 100 mg PO DAILY PRN 02/06/24 Tamsulosin [Flomax*] 0.4 mg PO BEDTIME 02/06/24 Verapamil HCl [Verapamil Sr] 360 mg PO DAILY 02/06/24 clomiPHENE citrate [Clomid] 50 mg PO DAILY 02/06/24 Clopidogrel Bisulfate [Plavix] 75 mg PO DAILY #30 tab 02/07/24 New Medications: Clopidogrel Bisulfate [Plavix] 75 mg PO DAILY #30 tab Physician Discharge Instructions: PROBLEM: Stroke GOAL: Clear understanding of disease process INSTRUCTIONS: Please continue your home medications as previously prescribed You will be sent a prescription for the following medications to [facility] Clopidogrel/Plavix 75 mg once daily Continue taking your aspirin [id number] as you were previously We also recommend you get kmyb-noh-ecwijfp folic acid take 1 mg daily Please follow-up with your primary care doctor 1 to 2 weeks Please also follow-up with neurologyDr. Szymanski Diet: AHA Activity: Ad lisseth DME DME: Date Ordered: Name of Company: [employer] Services Needed: None Name of Company: Date or Referral: IMMUNIZATION Influenza Vaccine Indicated: Influenza Vaccine Given: Date Given: Pneumonia Vaccine Indicated: No Pneumonia Vaccine Given: Date Given: 63-year-old male with history of hypertension, hyperlipidemia, qef-ocyqfxx-jbakitfxv diabetes presents emergency department chief complaint of right-sided weakness. He reports that symptoms began at 830 on 02/05 while cutting trees with a chainsaw. He reports he had right-sided weakness affecting his upper and lower extremity and for that reason came into the hospital. He was evaluated in the emergency department code stroke was called on arrival, he was noted to have an NIH score of 3 with right upper and lower extremity weakness noted. CT head without contrast was performed which showed 10 mm low- density area right frontal lobe adjacent to the right lateral ventricle which could be an area of ischemia secondary to small vessel disease or an old infarct although no acute abnormalities are present. CTA of the head and neck were negative for large vessel occlusion, he does have 35% left internal carotid stenosis. Patient arrived within the window for TNK, case was discussed with neurology by ED provider, TNK was administered at 1206 on 02/05. Patient was admitted to the hospital, MRI was obtained which showed No acute intracranial abnormality. Specifically, no evidence of acute infarct. Mild chronic small vessel ischemic changes. Small remote right frontal deep white matter infarct. Patient's symptoms have improved his NIH score is currently 0 with no residual deficit noted. Suspect TIA at this point in time. Diet: AHA Activity: Ad lisseth Followup: Scott Szymanski MD [ASSOCIATE-ACTIVE - CAN ADMIT] - NONE,NONE [Primary Care Provider] - 1-2 Weeks Time spent managing pt's care (in minutes): 35
--- NOTE | 2024-02-08 10:10 | ECHO ---
HEIGHT: 5 ft 11 in WEIGHT: 212 lb 9.6 oz DATE OF STUDY: 02/07/[address]: Manny Childress NP 2-DIMENSIONAL: YES M.MODE: YES DOPPLER: YES COLOR FLOW: YES TDS: PORTABLE: YES DEFINITY: BUBBLE STUDY: DIAGNOSIS: STROKE CARDIAC HISTORY: CATHERIZATION: NO SURGERY: NO PROSTHETIC VALVE: NO PACEMAKER: NO MEASUREMENTS (cm) DIASTOLIC (NORMALS) SYSTOLIC (NORMALS) IVSd 1.0 (0.6-1.2) LA Diam 4.2 (1.9-4.0) LVEF 60-65% LVIDd 4.6 (3.5-5.7) LVIDs 3.3 (2.0-3.5) %FS 27% LVPWd 1.1 (0.6-1.2) Ao Diam 3.2 (2.0-3.7) 2 DIMENSIONAL ASSESSMENT: RIGHT ATRIUM: NORMAL LEFT ATRIUM: NORMAL RIGHT VENTRICLE: NORMAL LEFT VENTRICLE: NORMAL TRICUSPID VALVE: NORMAL MITRAL VALVE: TRACE MITRAL REGURGITATION PULMONIC VALVE: NORMAL AORTIC VALVE: NORMAL PERICARDIAL EFFUSION: NONE AORTIC ROOT: NORMAL LEFT VENTRICULAR WALL MOTION: NORMAL DOPPLER/COLOR FLOW: NORMAL COMMENTS: 1. NORMAL LEFT VENTRICULAR SYSTOLIC FUCNTION, EJECTION FRACTION 60-65%, NORMAL WALL MOTION 2. NORMAL DIASTOLIC FUNCTION TECHNOLOGIST: ANYA MENCHACA
== END 2024-02-07 13:15 | disposition home or self-care (01) ==
LOC: ER 11:17 → ERHOLD 13:31 → 3RD-ICU 14:21
PROVIDERS: ADMIT Internal Medicine; ATTEND Hospitalist
DX: R53.1 Weakness (principal); R20.2 Paresthesia of skin; I65.22 Occlusion and stenosis of left carotid artery; I10 Essential (primary) hypertension; E78.5 Hyperlipidemia, unspecified; E11.9 Type 2 diabetes mellitus without complications; N40.0 Benign prostatic hyperplasia without lower urinary tract symptoms; Z88.5 Allergy status to narcotic agent
CPT/HCPCS: 85025; 80048; 36415; 83735; 82550; 85610; 82947 ×3; 80076; 85730; 84484; 70496; 70498; 70450; 71045; 70551; Q9967; J3101; 80061; 84436; 84443; 92977; 93005; 93306; 96365; 96375; 99285; G0378

== ENCOUNTER 2024-03-07 06:30 | Day surgery (SDC) | payer OTHER ==
[2024-03-02 11:00] LABS: Absolute Basophils 0.1 K/uL (0-0.5); Absolute Eosinophils 0.2 K/uL (0-0.5); Absolute Lymphocytes (CBC) 2.2 K/uL (0.7-4.9); Absolute Monocytes 0.5 K/uL (0.1-1.3); Absolute Neutrophil 3.3 K/uL (1.8-8.0); Basophils % 1.1 % (0-1.3); Eosinophils % 3.8 % (0-4.4); Hematocrit 42.4 % (39.6-49.0); Hemoglobin 13.9 g/dL (13.6-17.9); Lymphocytes % 34.8 % (15.3-44.8); MCHC 32.8 g/dL (32.0-36.0); MCV 91.4 fL (80-100); MPV 8.4 fL (7.6-11.3); Monocytes % 8.4 % (3.3-12.3); Neutrophils % 51.9 % (41.7-73.7); Platelets 191 thou/uL (152-406); RBC Red Blood Cell Count 4.63 M/uL (4.33-5.43); Red Cell Distribution Width 14.3 % (12.1-15.2)
[2024-03-02 11:16] LABS: PT Prothrombin Time 12.5 SECONDS (9.4-12.5); PTT, Activated Partial Thromb 28.2 SECONDS (24.3-36.9); Protime INR 1.12
[2024-03-02 11:18] LABS: Anion Gap 8.7 mEq/L (5.0-15.0); Potassium 3.7 mEq/L (3.5-5.1)
--- NOTE | 2024-03-02 14:05 | EKG ---
Test Date: 2024-03-02 Test Time: 10:55:02 Cuff Maker: WILY MEASUREMENT RESULTS: Intervals: Rate: 61 [place]: 166 QRSD: 84 QT: 434 QTc: 436 [place]: P: 80 NE: 166 QRS: 68 T: 72 INTERPRETIVE STATEMENTS: Normal sinus rhythm Normal ECG Compared to ECG 02/06/2024 11:50:33 No significant changes Electronically Signed On 03-02-24 14:05:01 CDT by Orlando Claudio
[2024-03-07] MEDS ORDERED: LIDOCAINE 1% 20 ML MDV ONE (06:56)
[2024-03-07] MEDS ORDERED: HEPA 1000U/500MLS 2,000 UNIT/1,000 ML BAG IV ONE (06:56)
[2024-03-07] MEDS ORDERED: FENTANYL CITR 100 MCG/2 ML ONE (06:57)
[2024-03-07] MEDS ORDERED: VERAPAMIL HCL 10 MG/4 ML VIAL IV ONE (06:57)
[2024-03-07] MEDS ORDERED: MIDAZOLAM HCL 2 MG/2 ML INJ ONE (06:57)
[2024-03-07] MEDS ORDERED: ATROPINE SULF 1 MG/10 ML SYR IV ONE (06:57)
[2024-03-07] MEDS ORDERED: NA CHLORIDE 0.9% 500 ML ONE (06:57)
[2024-03-07] MEDS ORDERED: TICAGRELOR 90 MG TABLET PO ONE (06:58)
[2024-03-07] MEDS ORDERED: ASPIRIN 325 MG TAB ONE (06:58)
[2024-03-07] MEDS ORDERED: HEPARIN 5000 UNIT/ML 1 ML VIAL ONE (06:58)
[2024-03-07] MEDS ORDERED: CLOPIDOGREL 75 MG TABLET ONE (06:58)
[2024-03-07] MEDS ORDERED: HEPARIN 10,000 UNIT/10 ML VIAL IV ONE (06:58)
[2024-03-07] MEDS ORDERED: NITROGLYCERIN/D5W 50 MG/250 ML BTL IV ONE (07:00)
[2024-03-07 07:12] VITALS: TEMP 97.8
--- NOTE | 2024-03-07 08:09 | OP ---
Date of Procedure: 03/07/2024 Surgeon: DANIELLE MORRIS Procedures Performed: 1.Selective coronary angiogram. 2.Left heart catheterization. Indication: Ventricular tachycardia, multiple episodes. Access: Right radial artery 6-Albanian, closed with TR band. Complications: None. Bleeding: Less than 50 mL. Anesthesia: Total sedation time is 45 minutes. Description Of Procedure: After risks, benefits, and alternatives were explained, the patient agreed to the procedure and signed informed consent. The patient was brought into the cardiac catheterizat ion laboratory, prepped and draped in sterile fashion. Then, I accessed right radial artery using pe diatric micropuncture kit, placed a 6-Albanian Slender sheath and took 5-[place] 4 catheter into t he aortic root, engaged the left main and then right coronary artery, took standard views, and the ca theter was pushed over the wire into the LV, measured the LVEDP. Pullback did not record any gradien t. I then removed the catheter and the sheath, placed TR band with good hemostasis. Findings: 1.Left main, very large with distal at least 50% stenosis. 2.LAD, ostial 80% stenosis and then becomes free of disease and in the mid segment, there is focal 9 9% stenosis, but with KATIE-3 flow. Diagonals appears to be okay. 3.Left circumflex has ostial 90% stenosis. 4.RCA; large and dominant, and mid 60% stenosis. 5.LVEDP is 20 mmHg. Conclusions: 1.Severe multivessel coronary artery disease including left main. 2.Elevated LVEDP. Recommendation: Transfer for CABG. SR/MODL Voice ID: [id number] Report ID: [id number]
[2024-03-07 09:37] VITALS: O2SAT 96
[2024-03-07 10:04] VITALS: BP 144/70
== END 2024-03-07 12:30 | disposition home or self-care (01) ==
LOC: CCL 06:30
PROVIDERS: ATTEND Internal Medicine
PROC: 4A023N7 Measurement of Cardiac Sampling and Pressure, Left Heart, Percutaneous Approach (ICD-10-PCS; principal; 2024-03-07)
PROC: B2111ZZ Fluoroscopy of Multiple Coronary Arteries using Low Osmolar Contrast (ICD-10-PCS; 2024-03-07)
PROC: B2151ZZ Fluoroscopy of Left Heart using Low Osmolar Contrast (ICD-10-PCS; 2024-03-07)
DX: I25.10 Atherosclerotic heart disease of native coronary artery without angina pectoris (principal); I47.20 Ventricular tachycardia, unspecified; I10 Essential (primary) hypertension; E78.5 Hyperlipidemia, unspecified; E11.9 Type 2 diabetes mellitus without complications; Z79.84 Long term (current) use of oral hypoglycemic drugs; Z79.899 Other long term (current) drug therapy; Z88.5 Allergy status to narcotic agent
CPT/HCPCS: 93005; 85025; 80048; 36415; 85610; 82947; 85730; 93458; J1644; J2001; J2250; J3010; J7040; J0461